=== PATIENT | male | born 1980 | race Caucasian/White ===

== ENCOUNTER 2016-12-23 00:37 | Inpatient (IN) | payer MEDICAID ==
[~2016-12-23] VITALS: Ht 175.3 cm; Wt 110.4 kg
[2016-12-23] VITALS (8 sets, daily range): BP systolic 113–149; BP diastolic 66–93
[~2016-12-23 00:37] MED LIST: AMOXICILLIN 50500 MG PO; COLCRYS0.6 M1 PO; HYDROCODONE1 TABLET PO; LORTAB 5/500 501 TAB PO; METHADONE HC10 MG/M1 PO; NAPROSYN 500MG500 MG PO; NEURONTIN800 MG PO; PERCOCET 5/3251 EACH PO
--- NOTE | 2016-12-23 01:59 | Emergency Room Report ---
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 C/O PAIN FROM LEFT KNEE TO LEFT FOOT. HAS HAD APPROX 1/4 PINT ALCOHOL TONIGHT AND TOOK 1/2 METHADONE THIS AM THAT DIDNT BELONG TO HIM. 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 N Clinical Suspician of Infection? N Mental Status: 1 - Regular (Normal Baseline) Sepsis Risk:Low Sepsis Risk Have you (or family members/close friends) recently traveled outside the [place]? N If Yes, where/when: Have you had exposure to infectious disease within the past month? N TB? Other? Specify: Source patient, RN notes reviewed, family, EMS, old records Exam Limitations no limitations Comment pt missttepped and injured lt lower leg - pt had used etoh and pain meds tonight prior to fall- no other injury Cardiac Chest Pain Chest pain indicative of cardiac No Timing/Duration this evening Severity moderate ALLERGIES Coded Allergies: NO KNOWN ALLERGIES (12/23/16) History Medical History General CAD? No Angina: No OR: No Hypertension? No Hyperlipidemia? No CHF? No DVT? No PE? No COPD? No Asthma? No Anemia? No GERD? No Gastric ulcers? No GI Bleed? No Hernia? No Thyroid Problems? No Hypothyroidism? No CVA? No Seizures? No Diabetes? No Renal Insuffiency? No End Stage Renal Disease? No UTI? No Stones? No BPH? No GB Disease: No Nephritic Syndrome? No Asplenia? No Hepatitis? No Sickle Cell Disease? No Arthritis? No Migraines? No Cataracts? No Glaucoma? No MRSA? Yes HIV? No TB? No Anxiety? No Depression? No Cancer? No Immunization Hx DT/Tetanus > 10 Years Ago Surgical Hx Previous Surgery?Y NASAL SURGERY Social History Smoking Hx Smoker: Current Every Day Smoker Tobacco: Yes Type Cigarettes Packs/day 1 1/2 - 2 Packs Alcohol Alcohol: No Drugs none Review of Systems All Other Systems Reviewed and Negative Constitutional denies fever Eyes denies drainage ENT denies: ear discharge, epistaxis, throat pain. Respiratory denies cough, denies shortness of breath, denies wheezing Cardiovascular denies chest pain, denies palpitations, denies syncope Gastrointestinal denies abdominal pain, denies diarrhea, denies vomiting Genitourinary denies: dysuria, frequency, hesitancy, hematuria. Musculoskeletal see HPI, denies back pain, joint pain, denies joint swelling, denies neck pain, other Skin denies rash Psychiatric/Neurological denies headache, denies seizure Physical Exam Vital Signs Vital Signs Date Time Temp Pulse Resp B/P Pulse O2 O2 Flow FiO2 Ox Delivery Rate 12/23 023 98.7 114 20 126/62 96 12/23 0150 94 20 111/69 96 12/23 0040 86 20 113/66 96 - WBC >12,000 or <4,000 or 10% bands? 2 or more SIRS Criteria Met? B/P:126/62 MAP:81 Creatinine >2.0? UA output<0.5ml/kg/hr for 2 hrs? Platelet count >100,000? Lactate >2.0mmol/1? INR >1.2 or PTT > than 60 sec? Evidence of Organ Dysfunction? Provider documented clinical suspician of infection? N Sepsis Criteria Count: 1 Sepsis Risk: Low Sepsis Risk General Appearance no apparent distress Eye Exam - bilateral eye PERRL, bilateral eye EOMI Ear, Nose, Throat normal ENT inspection Neck supple Respiratory Status No: respiratory distress. Lung Sounds bilateral: lungs clear. 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 No Results/Orders Laboratory Tests 12/23/16 0236: Opiates Screen NEGATIVE, Urine Methadone Screen POSITIVE H, Barbiturates NEGATIVE, Phencyclidine Screen NEGATIVE, Amphetamines Screen NEGATIVE, Benzodiazepines Screen POSITIVE H, Cocaine Screen NEGATIVE, Marijuana (THC) Screen NEGATIVE, Urine Color YELLOW, Urine Appearance CLEAR, Urine pH 6.0, Ur Specific [place] 1.010, Urine Protein NEGATIVE, Urine Ketones NEGATIVE, Urine Blood NEGATIVE, Urine Nitrate NEGATIVE, Urine Bilirubin NEGATIVE, Urine Urobilinogen 0.2, Ur Leukocyte Esterase NEGATIVE, Urine Glucose NEGATIVE 12/23/16 0200: Sodium 143, Potassium 3.3 L, Chloride 105, Carbon Dioxide 30, BUN 7, Creatinine 0.8, Estimated Creat Clear 194, Estimated GFR (MDRD) 110, Glucose Pending, Calcium 8.0 L, Total Bilirubin 0.3, AST Pending, ALT Pending, Alkaline Phosphatase 105, Total Protein 7.2, Albumin 3.7, Globulin 3.5 H, Albumin/ Globulin Ratio 1.1, WBC 10.8, RBC 5.34, Hgb 16.9, Hct 47.1, MCV 88.1, RDW 12.9, Plt Count 170, MPV 8.6, Gran % 74.6, Gran # 8.0, Lymphocytes % 20.3, Monocytes % 3.1, Eosinophils % 1.6, Basophils % 0.4, Lymphocytes # 2.2, Monocytes # 0.3, Eosinophils # 0.2, Basophils # 0.1, PUBS MCHC 36.0 H, MCH 31.7 H, Alcohols 113 H Orders Procedure Date/time Status Decision to admit 12/23 0252 Active URINALYSIS/COMPLETE 12/23 158 Complete DRUG ABUSE SCREEN (TRIAGE) 12/23 158 Complete CBC WITH AUTO DIFF 12/23 153 Complete CHEM 12 PROFILE 12/23 153 Active ALCOHOL 12/23 153 Complete IV SALINE LOCK 12/23 48 Active PELVIS AP ONLY 12/23 44 Active LOWER LEG-LT 12/23 44 Active ANKLE-LT-3 VIEWS 12/23 44 Active XRAY/CT/US XRAY/CT/US XRAY leg, pelvis XR interpretation by reviewed by me Xray Results abnormal (fx seen) Departure Departure Time of Disposition 0303 Disposition Still a Patient Clinical Impression Primary Impression: Fracture of lower leg Qualifiers: Encounter type: initial encounter Fracture type: closed Laterality: left Qualified Code: S82.92XA - Unspecified fracture of left lower leg, initial encounter for closed fracture Condition STABLE Referrals Andi CASILLAS,Ken Dickinson (Family) discussed with dr tomas ED Critical Care Critical Care No at [id number]
[2016-12-23 02:07] LABS: HEMOGLOBIN 16.9 g/dL (14.1-18.0); LYMPH # 2.2 K/mm3 (0.7-4.5); LYMPH % 20.3 % (10-50)
[2016-12-23 02:47] LABS: URINE BILIRUBIN - DIPSTICK NEGATIVE (NEG); URINE BLOOD NEGATIVE (NEG)
[2016-12-23 02:57] LABS: AMPHETAMINES/METAMPHETAMINES NEGATIVE ng/mL (<1000)
[2016-12-23 03:20] LABS: URINE SQUAMOUS CELLS OCC #/hpf (OCC)
[2016-12-23] MEDS ORDERED: WELLBUTRIN SR100 MG PO ×2 (04:48→08:46)
[2016-12-23] MEDS ORDERED: GABAPENTIN 600600 MG PO (04:49)
--- NOTE | 2016-12-23 05:44 | RADIOLOGY REPORT PS360 ---
LOWER LEG-LT HISTORY: Pain following injury FALL ORDERING PHYSICIAN: Ken Escamilla MD PATIENT AGE: 36 years COMPARISON: None FINDINGS: Comminuted spiral fracture involving the distal shaft of the tibia with very minimal lateral displacement of the distal fracture fragment x 6 mm. Nondisplaced oblique fracture involving the distal shaft of the fibula. There is good alignment IMPRESSION: Mildly displaced comminuted distal tibia fracture Nondisplaced oblique distal fibular fracture
--- NOTE | 2016-12-23 05:45 | RADIOLOGY REPORT PS360 ---
PELVIS AP ONLY HISTORY: Fall with injury and pain FALL ORDERING PHYSICIAN: Ken Escamilla MD PATIENT AGE: 36 years COMPARISON: None FINDINGS: No fracture or dislocation is evident. No significant degenerative change. No lytic or blastic change. The SI joints have an unremarkable appearance. Unremarkable soft tissues. IMPRESSION: Negative pelvis.
--- NOTE | 2016-12-23 07:18 | PHARMACY CLINIC NOTE ---
Patient Demographics Patient Demographics Admission date: 12/23/16 Date: 12/23/16 Time: 0718 Allergies Coded Allergies: No Known Allergies (12/23/16) HEIGHT- FT: 5 IN: 9.00 K.366 VTE General Information Labs: Laboratory Tests 12/23 0200 Hematology Hgb (14.1 - 18.0 g/dL) 16.9 Hct (42.0 - 52.0 %) 47.1 Plt Count (142 - 424 K/mm3) 170 Disclaimer The following section includes nursing documentation that has been pulled in for pharmacy review. Patient's VTE score: 3 Patient's VTE Risk: LOW RISK Clinical trial participant? No VTE prophylaxis NQF [id number] VTE prophylaxis ordered? Yes Type of prophylaxis/treatment: BIANCA at 0718
[2016-12-23] MEDS ORDERED: NEURONTIN800 MG PO (08:37)
[2016-12-23] MEDS ORDERED: OXAZEPAM 10MG C10 M1 PO (08:38)
[2016-12-23] MEDS ORDERED: ESCITALOPRAM 2020 MG PO (08:38)
[2016-12-23] MEDS ORDERED: HYDROXYZINE HCL25 M1 PO (08:38)
--- NOTE | 2016-12-23 09:11 | HISTORY AND PHYSICAL REPORT ---
Demographics: Admit date: 12/23/16 Chief complaint: fall PRIMARY DIAGNOSIS: LEG FX Allergies: Coded Allergies: No Known Allergies (12/23/16) History of present illness: History of present illness: this is a healthy wm who slipped on step last pm with acute lt leg injury and had been drinking etoh- he was brought by ems and was seen in the ed with fx of lt lower leg and was admitted for orif with dr tomas- Past medical history: Family HX Family Hx Insignificant Yes Immunization HX DT/Tetanus 5-10 Years Ago Pneumonia Refuses TB Test in last year Yes Result Negative General CAD? No Angina: No DE: No Hypertension? No Hyperlipidemia? No CHF? No DVT? No PE? No COPD? No Asthma? No Anemia? No GERD? No Gastric ulcers? No GI Bleed? No Hernia? No Thyroid Problems? No Hypothyroidism? No CVA? No Seizures? No Diabetes? No Renal Insuffiency? No UTI? No Stones? No BPH? No GB Disease: No Nephritic Syndrome? No Asplenia? No Hepatitis? No Sickle Cell Disease? No Arthritis? No Migraines? No Cataracts? No Glaucoma? No MRSA? Yes HIV? No TB? No Anxiety? No Depression? No Cancer? No Past Surgical HX Previous Surgery?Y NASAL SURGERY Current home meds: Reported Medications Gabapentin (Neurontin) 800 MG PO TID Oxazepam 10 MG PO BIDP PRN ANXIETY Escitalopram Oxalate (Escitalopram 20MG) 20 MG PO DAILY BUPROPION HCL SR (Wellbutrin SR 100MG) 100 MG PO BID Social Hx: Smoking HX Tobacco Yes Type Cigarettes Packs/day 1 1/2 - 2 PACKS Alcohol Alcohol: Yes How much do you drink Less Than One Drink A Day, ONCE PER WEEK For how long 2-5 Years When was your last drink 12-24 Hours Ago Hx of Drug Use Drug Use? No Patien't marital status is Patient's support system is good Review of systems: Constitutional No: fever. Eyes No: drainage. Ears, Nose, Mouth, Throat No ear discharge, No epistaxis, No throat pain Respiratory No: cough, shortness of breath, wheezing. Cardiovascular No chest pain, No palpitations, No syncope Gastrointestinal/Abdominal No abdominal pain Genitourinary No: dysuria, frequency, hesitancy, hematuria. Musculoskeletal see HPI, joint pain, joint swelling. No: back pain, neck pain. Skin No: rash. Neurological No: headache, parasthesia, seizure disorder. Psychiatric No: no symptoms reported. Exam: Lab data for last 24 hours: Laboratory Tests 12/23/16 0236: Opiates Screen NEGATIVE, Urine Methadone Screen POSITIVE H, Barbiturates NEGATIVE, Phencyclidine Screen NEGATIVE, Amphetamines Screen NEGATIVE, Benzodiazepines Screen POSITIVE H, Cocaine Screen NEGATIVE, Marijuana (THC) Screen NEGATIVE, Urine Color YELLOW, Urine Appearance CLEAR, Urine pH 6.0, Ur Specific [place] 1.010, Urine Protein NEGATIVE, Urine Ketones NEGATIVE, Urine Blood NEGATIVE, Urine Nitrate NEGATIVE, Urine Bilirubin NEGATIVE, Urine Urobilinogen 0.2, Ur Leukocyte Esterase NEGATIVE, Urine WBC 3-5, Ur Squamous Epith Cells OCC, Urine Bacteria OCC, Urine Glucose NEGATIVE 12/23/16 0200: Sodium 143, Potassium 3.3 L, Chloride 105, Carbon Dioxide 30, BUN 7, Creatinine 0.8, Estimated Creat Clear 194, Estimated GFR (MDRD) 110, Glucose 65 L, Calcium 8.0 L, Total Bilirubin 0.3, AST 30, ALT 43, Alkaline Phosphatase 105, Total Protein 7.2, Albumin 3.7, Globulin 3.5 H, Albumin/Globulin Ratio 1.1, WBC 10.8, RBC 5.34, Hgb 16.9, Hct 47.1, MCV 88.1, RDW 12.9, Plt Count 170, MPV 8.6, Gran % 74.6, Gran # 8.0, Lymphocytes % 20.3, Monocytes % 3.1, Eosinophils % 1.6, Basophils % 0.4, Lymphocytes # 2.2, Monocytes # 0.3, Eosinophils # 0.2, Basophils # 0.1, PUBS MCHC 36.0 H, MCH 31.7 H, Alcohols 113 H Admission vital signs: 1ST Vital Signs Result Date Time Pulse Ox 96 12/23 0040 B/P 113/66 12/23 0040 Pulse 86 12/23 0040 Resp 20 12/23 0040 Temp 98.7 12/23 0234 O2 Delivery ROOM AIR 12/23 0455 Exam General appearance: alert Eyes: anicteric, PERRLA ENT: mucous membranes moist Neck: no JVD Cardiovascular: regular rate & rhythm, no murmur Respiratory: clear to auscultation ABD: soft Genitourinary: no hematuria Extremities: splint lt lower leg Musculoskeletal: normal exam Skin: dry 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 Fracture of lower leg 2. Tobacco use 3. Alcohol use Plan: will await dr tomas consult at 0910
--- NOTE | 2016-12-23 09:30 | RADIOLOGY REPORT PS360 ---
CHEST-PORTABLE HISTORY: cough ORDERING PHYSICIAN: Ken Escamilla MD PATIENT AGE: 36 years COMPARISON: None available FINDINGS: The cardiomediastinal silhouette and pulmonary vascularity are within normal limits. The lungs are clear without infiltrates, suspicious nodules, or pleural effusions. No acute bony abnormalities. IMPRESSION: Negative chest, no acute finding
[2016-12-24] VITALS (13 sets, daily range): BP systolic 115–152; BP diastolic 63–92
[2016-12-24 06:52] LABS: HEMOGLOBIN 16.2 g/dL (14.1-18.0); LYMPH % 27.6 % (10-50)
--- NOTE | 2016-12-24 12:58 | ACUTE CARE PROGRESS NOTE (QUA) ---
Progress Notes Subjective Date 12/24/16 Time 1252 Note pain a bit worse Patient/family reports: pain Nursing reports: pain Objective Findings Last VS-Temp:98.3 B/P:147/88 Pulse:85 Resp:16 SaO2:93 ROOM AIR Last weight lbs:243 oz:5 K.366 Method:Bed Scales Exam General appearance: alert, awake Eyes: anicteric, PERRLA ENT: mucous membranes moist Neck: no JVD Cardiovascular: regular rate & rhythm, no murmur Respiratory: clear to auscultation, no respiratory distress ABD: soft Genitourinary: no hematuria Extremities: splint lt lower leg - cap refill ok Musculoskeletal: equal muscle strength Skin: dry Neuro: 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 Fracture of lower leg 2. Tobacco use 3. Alcohol use Patient condition Stable Plan: surg today This inpt stay is expected to cross 2 MNs from start of care Yes Comments: will have surg today at 1257
--- NOTE | 2016-12-24 12:58 | ACUTE CARE PROGRESS NOTE (QUA) ---
Progress Notes Subjective Date 12/24/16 Time 1252 Note pain a bit worse Patient/family reports: pain Nursing reports: pain Objective Findings Last VS-Temp:98.3 B/P:147/88 Pulse:85 Resp:16 SaO2:93 ROOM AIR Last weight lbs:243 oz:5 K.366 Method:Bed Scales Exam General appearance: alert, awake Eyes: anicteric, PERRLA ENT: mucous membranes moist Neck: no JVD Cardiovascular: regular rate & rhythm, no murmur Respiratory: clear to auscultation, no respiratory distress ABD: soft Genitourinary: no hematuria Extremities: splint lt lower leg - cap refill ok Musculoskeletal: equal muscle strength Skin: dry 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 Fracture of lower leg 2. Tobacco use 3. Alcohol use Patient condition Stable Plan: surg today This inpt stay is expected to cross 2 MNs from start of care Yes Comments: will have surg today at 1257
--- NOTE | 2016-12-24 16:43 | Anesthesia Record ---
Anesthesia Record Part II Discharge time: 1710 Destination: Second Floor PACU nurse assessment review? Yes Patient is: Awake, Stable Anesthesia complications? No at 0317
--- NOTE | 2016-12-24 16:43 | Anesthesia Record ---
Anesthesia Record Part I Total IV fluids: 2500 EBL (ml): 150 Urine Output: 0 B/P: 155/74 % SaO2: 95 Pulse: 112 Resps: 14 Temp: 97.2 Patient is: Awake, Stable Stable to PACU at: 1640 at 1643
--- NOTE | 2016-12-24 16:56 | Operative Note ---
Procedure/Operative Record Date of Procedure: 12/24/16 Referring physician: Dr. Escamilla Pre-op diagnosis: LEFT comminuted spiral tibia fracture, closed LEFT spiral fibula fracture, closed Post-op diagnosis: Same Procedure performed: Open reduction internal fixation LEFT fibular fracture Closed intramedullary nailing LEFT tibia fracture Surgeon: Kulwant Storm Pig Machine Crane Operator(s): Rhoda HOFFMAN indicated due to the complexity of this case Anesthesia: Gen. anesthetic Indications: The patient is a 36-year-old male who fell down a set of stairs incurring a closed, comminuted spiral fracture of his LEFT tibial diaphysis as well as a closed spiral fracture of his Findings: Preoperative radiographs agree with intraoperative findings. Bone quality was excellent. Description of procedure: The patient was taken to the operating room and placed in the supine position. General anesthetic was administered. The leg was carefully prepped and draped in the usual sterile fashion with Hibiclens liquid followed by chlorhexidine preparations sponges. After an appropriate timeout, a closed reduction maneuver was attempted. Unfortunately, the comminution of the tibia at the fracture of the fibula prevented appropriate reduction. At this point, we elected to open and perform open reduction internal fixation on the fibula. The limb was exsanguinated and the tourniquet inflated to 325 torr. A midline incision was made over the fibula and we carefully dissected soft tissues using strict AO technique. The fibula was exposed the fracture site irrigated, and the fibula grasped with tenaculums and reduced to an anatomic position. A [place] plate was applied using cortical screws. This held the fibula and essentially an anatomic position and also brought the tibia out to a much more appropriate length. At this point, we could reduce the tibia near anatomically. We irrigated the lateral incision and packed it with wet sponges. We next made a suprapatella incision through the skin subcutaneous tissues, and into the quadriceps tendon. We carefully mobilized a small portion of the VMO to access the quadriceps tendon and spared cutting of these fibers. The tendon was split and we attempted to insert the [place] suprapatella guide and protection sleeve. The patellofemoral joint was quite tight in this patient and we were unable to achieve this despite repeated attempts including with the leg fully extended. At this point, we conferred with the medicare sales representative and switch to the smaller guide which, would allow an 11 mm nail but no larger nail. We determined this would likely be adequate in this patient and proceeded to place the sleeve. We were able to get the sleeve in the patellofemoral joint however, the geometry allowed what appeared to be too posterior of a direction and a bit distal for starting point. Again we work with various degrees of flexion of the knee but unfortunately, were unable to successfully achieve a correct entry point using this technique. We then elected to go for an infrapatellar approach. We incised the skin, split the patellar tendon in the midline, and place the aiming cannulated awl in appropriate position, checking it with C-arm fluoroscopy. We then used the entry drill to place the guide pin. We then used the entry reamer followed by placement of a ball-tipped guidewire bent slightly at the tip to allow guidance. We carefully reduced the fracture manually and AP and lateral planes and carefully passed the ball-tipped guide past the fracture site so that it was placed in the center of the ankle. With the fracture stabilized by a nonoperative nutrition services assistant, we sequentially reamed to 12.5. Appropriate chatter was heard at the latter stages of reaming and we elected to place an 11 mm nail. We measured the length at 350 and chose a 345 mm length nail. The tourniquet was deflated proximally at this point. The nail was placed in the usual fashion taking care to guide it appropriately and the machine operator assistant was meticulous and preventing varus and valgus or flexion and extension of the fracture site. The nail was passed successfully and position and fracture alignment checked carefully. We then applied the proximal jig placed the guide sleeves, and placed a cross lock screw after drilling. We placed a 75 mm cross lock which was what was measured however, this appeared a bit too long and we switched it for a 70 mm screw. This was done because the patient's young age. We then placed a second cross lock screw measuring at and again placed the appropriate length measured screw but found it also to be a bit longer than appropriate and also switched it for one 5 mm shorter. Proximal cross lock screws 2 achieved good fixation. The suprapatella incision was closed at the same time the cross locks were being placed to prevent excess surgical time. The distal cross locks were placed using freehand perfect [place] ira technique. Once these two cross locks were placed, we irrigated and closed additional incisions as necessary. Both the quadriceps tendon and the patella tendon were closed with #1 Vicryl followed by subcutaneous closure with 2-0 Vicryl and rhett for the skin. The fibular lateral incision was irrigated and closed with 2-0 Vicryl followed by rhett. Rhett were also utilized with two cross lock incisions distally. We used C-arm to appropriately identify all hardware placed and ensure appropriate placement and alignment of the fracture. We then applied dressings to the incisions and the patient was transported to the recovery room in satisfactory condition. EBL (ml): 150 Implant: [place] tibial nail, titanium. Two cross lock screws proximally and two cross lock screws distally. No tibial nail cap screw was utilized. A [place] straight titanium plate and non-locking screws were used for the fibula fracture Complications: None Specimens: None at 6807
--- NOTE | 2016-12-24 19:14 | RADIOLOGY REPORT PS360 ---
LOWER LEG-LT HISTORY: LT TIBIA NAILING, FIBULA PLATES/SCREWS ORDERING PHYSICIAN: Ken Escamilla MD PATIENT AGE: 36 years Fluoroscopy time: 3 minutes and 27 seconds COMPARISON: None FINDINGS: 6 images submitted showing interval placement of an intramedullary nic within the tibia and bone plate of the distal fibula stabilizing the comminuted tibia and oblique fibular fracture. IMPRESSION: Status post ORIF tib-fib fracture
--- NOTE | 2016-12-24 19:15 | RADIOLOGY REPORT PS360 ---
LOWER LEG-LT HISTORY: Follow-up fracture 2 VIEWS LEFT LOWER LEG IN PACU ORDERING PHYSICIAN: Ken Escamilla MD PATIENT AGE: 36 years COMPARISON: 12/23/2016 FINDINGS: Status post ORIF with placement of intramedullary nic within the tibia with good alignment of the comminuted fracture fragments. Bone plate is been placed over the distal fibula also with good alignment of the fracture fragments. No significant displacement. Postsurgical clips are present. IMPRESSION: Good alignment status post ORIF left tib-fib fracture
[2016-12-24 19:23] LABS: URINE BILIRUBIN - DIPSTICK NEGATIVE (NEG); URINE BLOOD NEGATIVE (NEG)
[2016-12-25] VITALS (12 sets, daily range): BP systolic 111–146; BP diastolic 49–88
--- NOTE | 2016-12-25 09:02 | ACUTE CARE PROGRESS NOTE (QUA) ---
Progress Notes Subjective Date 12/25/16 Time 0900 Patient/family reports: feeling better, no complaints Nursing reports: alert Objective Findings Laboratory Tests 12/24/16 1730: Urine Color YELLOW, Urine Appearance CLEAR, Urine pH 7.0, Ur Specific [place] 1.015, Urine Protein NEGATIVE, Urine Ketones 1+ H, Urine Blood NEGATIVE, Urine Nitrate NEGATIVE, Urine Bilirubin NEGATIVE, Urine Urobilinogen 1.0, Ur Leukocyte Esterase NEGATIVE, Urine RBC OCC, Urine WBC 3-5, Ur Squamous Epith Cells NONE, Urine Bacteria TRACE, Urine Glucose NEGATIVE Vital Signs Date Time Temp Pulse Resp B/P Pulse O2 O2 Flow FiO2 Ox Delivery Rate 12/25 08 98.3 106 18 114/49 90 ROOM AIR 12/25 0830 98.4 104 18 117/71 92 12/25 0737 18 12/25 0548 18 12/25 0503 98.4 104 18 117/71 92 ROOM AIR 12/25 0205 98.3 121 18 111/71 92 ROOM AIR 12/25 0020 98.5 116 18 146/88 95 12/24 2320 98.7 122 18 140/78 92 12/24 2220 99.2 106 20 152/75 96 12/24 2120 98.6 113 18 115/63 91 12/24 2050 98.6 110 18 130/71 90 12/24 2020 98.7 111 18 151/73 91 12/24 1950 98.4 112 18 143/83 90 12/24 1920 98.4 108 18 141/86 90 12/24 1920 97.8 100 20 136/92 95 12/24 1851 18 12/24 1850 99.2 110 18 146/91 92 12/24 1835 98.7 124 18 129/77 92 12/24 1820 98.2 102 18 146/80 94 12/24 1819 85 18 147/88 93 12/24 1809 97.3 12/24 1805 98.3 110 18 145/71 93 12/24 1750 97.8 100 20 136/92 95 ROOM AIR 12/24 1740 100 20 150/85 97 ROOM AIR 12/24 1730 20 12/24 1730 104 18 164/71 97 OXYGEN 12/24 1720 106 18 120/60 98 OXYGEN 12/24 1715 16 12/24 1710 16 12/24 1710 105 16 132/96 99 OXYGEN 12/24 1705 16 12/24 1700 14 12/24 1700 104 16 141/91 96 OXYGEN 12/24 1650 107 14 155/98 94 OXYGEN 12/24 1642 97.2 112 14 155/74 95 12/24 1640 97.2 112 14 155/74 95 OXYGEN 12/24 1126 16 Current Medications Enoxaparin Sodium 30 MG Q12 SC (DC) Citalopram Hydrobromide 40 MG DAILY PO Morphine Sulfate 0 .STK-MED ONE IV (DC) Lactated Ringer's 1,000 ML .[id number] IV Sodium Chloride 100 ML .STK-MED ONE IV (DC) Cefazolin Sodium 0 .STK-MED ONE .ROUTE (DC) Bupropion HCl 100 MG BID PO Cefazolin Sodium 2 GM Q8 IV (DC) Sodium Chloride 50 ML Cefazolin Sodium 2 GM Q8 IV Sodium Chloride 50 ML Gabapentin 800 MG TID PO Sodium Chloride 50 ML .STK-MED ONE IV (DC) Cefazolin Sodium 0 .STK-MED ONE .ROUTE (DC) Hydrocodone Bitart/Acetaminophen 1 TAB Q4HP PRN PO Hydrocodone Bitart/Acetaminophen 2 TAB Q4HP PRN PO Ketorolac Tromethamine 30 MG Q6HP PRN IV Meperidine HCl 12.5 MG [id number] PRN IV (DC) Meperidine HCl 25 MG [id number] PRN IV (DC) Morphine Sulfate 2 MG [id number] PRN IV (DC) Morphine Sulfate 0.5 MG [id number] PRN IV (DC) Nicotine 21 MG DAILYP PRN TD Ondansetron HCl 4 MG Q6HP PRN IV Ondansetron HCl 4 MG Q4HP PRN IV (DC) Promethazine HCl 6.25 MG Q4HP PRN IV Senna/Docusate Sodium 1 TAB BIDP PRN PO Sodium Chloride 10 ML PRN PRN IV Sodium Chloride 10 ML PRN PRN IV Sodium Chloride 25 ML PRN PRN IV Hydromorphone HCl 2 MG ONCE ONE IV (DC) Hydromorphone HCl 0 .STK-MED ONE .ROUTE (DC) Hydrocodone Bitart/Acetaminophen 1 TAB Q4HP PRN PO (DC) Hydrocodone Bitart/Acetaminophen 2 TAB Q4HP PRN PO (DC) Ketorolac Tromethamine 30 MG Q6HP PRN IV (DC) Lactated Ringer's 1,000 ML .[id number] IV (DC) Morphine Sulfate 0.5 MG [id number] PRN IV (DC) Naloxone HCl 0.4 MG Q3MINP PRN IV Promethazine HCl 6.25 MG Q4HP PRN IV (DC) Senna/Docusate Sodium 1 TAB BIDP PRN PO (DC) Sodium Chloride 10 ML PRN PRN IV (DC) Sodium Chloride 25 ML PRN PRN IV (DC) Morphine Sulfate 0 .STK-MED ONE .ROUTE (DC) Morphine Sulfate 0 .STK-MED ONE .ROUTE (DC) Lactated Ringer's 1,000 ML .Q25H IV (DC) Meperidine HCl 12.5 MG [id number] PRN IV (DC) Meperidine HCl 25 MG [id number] PRN IV (DC) Morphine Sulfate 2 MG [id number] PRN IV (DC) Ondansetron HCl 4 MG Q4HP PRN IV (DC) Meperidine HCl 0 .STK-MED ONE .ROUTE (DC) Sevoflurane 0 .STK-MED ONE IN (DC) Dexamethasone 0 .STK-MED ONE .ROUTE (DC) Fentanyl Citrate 0 .STK-MED ONE IV (DC) Ondansetron HCl 0 .STK-MED ONE .ROUTE (DC) Propofol 0 .STK-MED ONE IV (DC) Lidocaine HCl 0 .STK-MED ONE .ROUTE (DC) Cefazolin Sodium 0 .STK-MED ONE .ROUTE (DC) Cefazolin Sodium 2 GM ONCE ONE IV (DC) Sodium Chloride 100 ML Bupivacaine HCl 0 .STK-MED ONE .ROUTE (DC) Fentanyl Citrate 0 .STK-MED ONE IV (DC) Midazolam HCl 0 .STK-MED ONE .ROUTE (DC) Hydromorphone HCl 1 MG Q4HP PRN IV (DC) Hydromorphone HCl 0 .STK-MED ONE .ROUTE (DC) Hydromorphone HCl 0 .STK-MED ONE .ROUTE (DC) Hydromorphone HCl 1 MG Q4HP PRN IV (DC) Citalopram Hydrobromide 40 MG DAILY PO (DC) Gabapentin 800 MG TID PO (DC) Bupropion HCl 100 MG BID PO (DC) Sodium Chloride 10 ML PRN PRN IV (DC) Nicotine 21 MG DAILYP PRN TD (DC) Ondansetron HCl 4 MG Q6HP PRN IV (DC) Sodium Chloride 1,000 ML .[id number] IV (DC) Last VS-Temp:98.3 B/P:114/49 Pulse:106 Resp:18 SaO2:90 ROOM AIR Last weight lbs:243 oz:5 K.366 Method:Bed Scales Exam General appearance: normal appearance, active, no acute distress Eyes: normal exam ENT: normal exam Neck: normal inspection Cardiovascular: normal exam, regular rate & rhythm Respiratory: normal exam ABD: normal exam Genitourinary: normal voiding & quantity Extremities: DRESSING TO LOWER LEG Musculoskeletal: normal exam Skin: normal exam Neuro: normal exam, alert, intact, oriented Reviewed: allergies, medications, vital signs, lab results, consult note Assessment/Plan Problem List 1. Fracture of lower leg Qualifiers: Encounter type: initial encounter Fracture type: closed Laterality: left Qualified Code: S82.92XA - Unspecified fracture of left lower leg, initial encounter for closed fracture 2. Tobacco use 3. Alcohol use Patient condition Stable Plan: continue current care This inpt stay is expected to cross 2 MNs from start of care Yes Comments: Rounded with Dr. Escamilla, discussed with Dr. Morton patient's need for pain control. at 0902
--- NOTE | 2016-12-25 09:02 | ACUTE CARE PROGRESS NOTE (QUA) ---
Progress Notes Subjective Date 12/25/16 Time 0900 Patient/family reports: feeling better, no complaints Nursing reports: alert Objective Findings Laboratory Tests 12/24/16 1730: Urine Color YELLOW, Urine Appearance CLEAR, Urine pH 7.0, Ur Specific [place] 1.015, Urine Protein NEGATIVE, Urine Ketones 1+ H, Urine Blood NEGATIVE, Urine Nitrate NEGATIVE, Urine Bilirubin NEGATIVE, Urine Urobilinogen 1.0, Ur Leukocyte Esterase NEGATIVE, Urine RBC OCC, Urine WBC 3-5, Ur Squamous Epith Cells NONE, Urine Bacteria TRACE, Urine Glucose NEGATIVE Vital Signs Date Time Temp Pulse Resp B/P Pulse O2 O2 Flow FiO2 Ox Delivery Rate 12/25 08 98.3 106 18 114/49 90 ROOM AIR 12/25 0830 98.4 104 18 117/71 92 12/25 0737 18 12/25 0548 18 12/25 0503 98.4 104 18 117/71 92 ROOM AIR 12/25 0205 98.3 121 18 111/71 92 ROOM AIR 12/25 0020 98.5 116 18 146/88 95 12/24 2320 98.7 122 18 140/78 92 12/24 2220 99.2 106 20 152/75 96 12/24 2120 98.6 113 18 115/63 91 12/24 2050 98.6 110 18 130/71 90 12/24 2020 98.7 111 18 151/73 91 12/24 1950 98.4 112 18 143/83 90 12/24 1920 98.4 108 18 141/86 90 12/24 1920 97.8 100 20 136/92 95 12/24 1851 18 12/24 1850 99.2 110 18 146/91 92 12/24 1835 98.7 124 18 129/77 92 12/24 1820 98.2 102 18 146/80 94 12/24 1819 85 18 147/88 93 12/24 1809 97.3 12/24 1805 98.3 110 18 145/71 93 12/24 1750 97.8 100 20 136/92 95 ROOM AIR 12/24 1740 100 20 150/85 97 ROOM AIR 12/24 1730 20 12/24 1730 104 18 164/71 97 OXYGEN 12/24 1720 106 18 120/60 98 OXYGEN 12/24 1715 16 12/24 1710 16 12/24 1710 105 16 132/96 99 OXYGEN 12/24 1705 16 12/24 1700 14 12/24 1700 104 16 141/91 96 OXYGEN 12/24 1650 107 14 155/98 94 OXYGEN 12/24 1642 97.2 112 14 155/74 95 12/24 1640 97.2 112 14 155/74 95 OXYGEN 12/24 1126 16 Current Medications Enoxaparin Sodium 30 MG Q12 SC (DC) Citalopram Hydrobromide 40 MG DAILY PO Morphine Sulfate 0 .STK-MED ONE IV (DC) Lactated Ringer's 1,000 ML .[id number] IV Sodium Chloride 100 ML .STK-MED ONE IV (DC) Cefazolin Sodium 0 .STK-MED ONE .ROUTE (DC) Bupropion HCl 100 MG BID PO Cefazolin Sodium 2 GM Q8 IV (DC) Sodium Chloride 50 ML Cefazolin Sodium 2 GM Q8 IV Sodium Chloride 50 ML Gabapentin 800 MG TID PO Sodium Chloride 50 ML .STK-MED ONE IV (DC) Cefazolin Sodium 0 .STK-MED ONE .ROUTE (DC) Hydrocodone Bitart/Acetaminophen 1 TAB Q4HP PRN PO Hydrocodone Bitart/Acetaminophen 2 TAB Q4HP PRN PO Ketorolac Tromethamine 30 MG Q6HP PRN IV Meperidine HCl 12.5 MG [id number] PRN IV (DC) Meperidine HCl 25 MG [id number] PRN IV (DC) Morphine Sulfate 2 MG [id number] PRN IV (DC) Morphine Sulfate 0.5 MG [id number] PRN IV (DC) Nicotine 21 MG DAILYP PRN TD Ondansetron HCl 4 MG Q6HP PRN IV Ondansetron HCl 4 MG Q4HP PRN IV (DC) Promethazine HCl 6.25 MG Q4HP PRN IV Senna/Docusate Sodium 1 TAB BIDP PRN PO Sodium Chloride 10 ML PRN PRN IV Sodium Chloride 10 ML PRN PRN IV Sodium Chloride 25 ML PRN PRN IV Hydromorphone HCl 2 MG ONCE ONE IV (DC) Hydromorphone HCl 0 .STK-MED ONE .ROUTE (DC) Hydrocodone Bitart/Acetaminophen 1 TAB Q4HP PRN PO (DC) Hydrocodone Bitart/Acetaminophen 2 TAB Q4HP PRN PO (DC) Ketorolac Tromethamine 30 MG Q6HP PRN IV (DC) Lactated Ringer's 1,000 ML .[id number] IV (DC) Morphine Sulfate 0.5 MG [id number] PRN IV (DC) Naloxone HCl 0.4 MG Q3MINP PRN IV Promethazine HCl 6.25 MG Q4HP PRN IV (DC) Senna/Docusate Sodium 1 TAB BIDP PRN PO (DC) Sodium Chloride 10 ML PRN PRN IV (DC) Sodium Chloride 25 ML PRN PRN IV (DC) Morphine Sulfate 0 .STK-MED ONE .ROUTE (DC) Morphine Sulfate 0 .STK-MED ONE .ROUTE (DC) Lactated Ringer's 1,000 ML .Q25H IV (DC) Meperidine HCl 12.5 MG [id number] PRN IV (DC) Meperidine HCl 25 MG [id number] PRN IV (DC) Morphine Sulfate 2 MG [id number] PRN IV (DC) Ondansetron HCl 4 MG Q4HP PRN IV (DC) Meperidine HCl 0 .STK-MED ONE .ROUTE (DC) Sevoflurane 0 .STK-MED ONE IN (DC) Dexamethasone 0 .STK-MED ONE .ROUTE (DC) Fentanyl Citrate 0 .STK-MED ONE IV (DC) Ondansetron HCl 0 .STK-MED ONE .ROUTE (DC) Propofol 0 .STK-MED ONE IV (DC) Lidocaine HCl 0 .STK-MED ONE .ROUTE (DC) Cefazolin Sodium 0 .STK-MED ONE .ROUTE (DC) Cefazolin Sodium 2 GM ONCE ONE IV (DC) Sodium Chloride 100 ML Bupivacaine HCl 0 .STK-MED ONE .ROUTE (DC) Fentanyl Citrate 0 .STK-MED ONE IV (DC) Midazolam HCl 0 .STK-MED ONE .ROUTE (DC) Hydromorphone HCl 1 MG Q4HP PRN IV (DC) Hydromorphone HCl 0 .STK-MED ONE .ROUTE (DC) Hydromorphone HCl 0 .STK-MED ONE .ROUTE (DC) Hydromorphone HCl 1 MG Q4HP PRN IV (DC) Citalopram Hydrobromide 40 MG DAILY PO (DC) Gabapentin 800 MG TID PO (DC) Bupropion HCl 100 MG BID PO (DC) Sodium Chloride 10 ML PRN PRN IV (DC) Nicotine 21 MG DAILYP PRN TD (DC) Ondansetron HCl 4 MG Q6HP PRN IV (DC) Sodium Chloride 1,000 ML .[id number] IV (DC) Last VS-Temp:98.3 B/P:114/49 Pulse:106 Resp:18 SaO2:90 ROOM AIR Last weight lbs:243 oz:5 [id number].366 Method:Bed Scales Exam General appearance: normal appearance, active, no acute distress Eyes: normal exam ENT: normal exam Neck: normal inspection Cardiovascular: normal exam, regular rate & rhythm Respiratory: normal exam ABD: normal exam Genitourinary: normal voiding & quantity Extremities: DRESSING TO LOWER LEG Musculoskeletal: normal exam Skin: normal exam Neuro: normal exam, alert, intact, oriented Reviewed: allergies, medications, vital signs, lab results, consult note Assessment/Plan Problem List 1. Fracture of lower leg Qualifiers: Encounter type: initial encounter Fracture type: closed Laterality: left Qualified Code: S82.92XA - Unspecified fracture of left lower leg, initial encounter for closed fracture 2. Tobacco use 3. Alcohol use Patient condition Stable Plan: continue current care This inpt stay is expected to cross 2 MNs from start of care Yes Comments: Rounded with Dr. Escamilla, discussed with Dr. Morton patient's need for pain control. at 0902
--- NOTE | 2016-12-25 13:22 | ACUTE CARE PROGRESS NOTE ---
Progress note Date: 12/25/16 Assessment: Awake alert and moderate pain. 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 Discussed with pharmacy. The vial be changed. Patient is sensate to light touch in the lower extremities. Pedal pulses intact. No evidence compartment syndrome as compartments are soft. Postop x-rays appear excellent. Dressings clean and dry Impression: 1. Fracture of lower leg Qualifiers Encounter type: initial encounter Fracture type: closed Laterality: left Qualified Code: S82.92XA - Unspecified fracture of left lower leg, initial encounter for closed fracture 2. Tobacco use 3. Alcohol use Plan: Touchdown weightbearing with physical therapy. Remove Dumont today. at 1326
--- NOTE | 2016-12-25 13:22 | ACUTE CARE PROGRESS NOTE ---
Progress note Date: 12/25/16 Assessment: Awake alert and moderate pain. 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 Discussed with pharmacy. The vial be changed. Patient is sensate to light touch in the lower extremities. Pedal pulses intact. No evidence compartment syndrome as compartments are soft. Postop x-rays appear excellent. Dressings clean and dry Impression: 1. Fracture of lower leg Qualifiers Encounter type: initial encounter Fracture type: closed Laterality: left Qualified Code: S82.92XA - Unspecified fracture of left lower leg, initial encounter for closed fracture 2. Tobacco use 3. Alcohol use Plan: Touchdown weightbearing with physical therapy. Remove Dumont today. at 1327
[2016-12-26] VITALS (11 sets, daily range): BP systolic 101–129; BP diastolic 64–78
--- NOTE | 2016-12-26 08:42 | ACUTE CARE PROGRESS NOTE (QUA) ---
Progress Notes Subjective Date 12/26/16 Time 0840 Patient/family reports: pain Nursing reports: alert Objective Findings Vital Signs Date Time Temp Pulse Resp B/P Pulse O2 O2 Flow FiO2 Ox Delivery Rate 12/26 0745 98.0 85 18 129/74 99 12/26 0609 98.0 85 18 129/74 99 12/26 0604 98.0 85 18 129/74 99 ROOM AIR 12/26 0455 98.2 82 18 127/78 93 ROOM AIR 12/26 0440 16 12/26 0205 98.0 80 18 129/71 93 12/26 0157 98.0 80 18 129/71 93 ROOM AIR 12/26 0001 16 12/25 2340 98.5 82 18 128/74 93 ROOM AIR 12/25 2213 18 12/25 2200 98.6 87 18 113/61 95 12/25 2146 98.6 87 18 113/61 95 ROOM AIR 12/25 2000 98.6 94 18 116/82 95 12/25 1950 98.6 94 18 116/82 95 12/25 1912 98.6 94 18 116/82 95 ROOM AIR 12/25 1856 18 12/25 1630 98.1 72 18 118/70 94 ROOM AIR 12/25 1200 98.2 75 18 125/78 93 ROOM AIR 12/25 1000 98.1 95 18 127/79 98 ROOM AIR Current Medications Ketorolac Tromethamine 0 .STK-MED ONE .ROUTE (DC) Hydrocodone Bitart/Acetaminophen 0 .STK-MED ONE PO (DC) Morphine Sulfate 0 .STK-MED ONE IV (DC) Enoxaparin Sodium 30 MG Q12 SC (DC) Senna/Docusate Sodium 0 .STK-MED ONE .ROUTE (DC) Hydrocodone Bitart/Acetaminophen 0 .STK-MED ONE PO (DC) Nicotine 0 .STK-MED ONE TD (DC) Lactated Ringer's 1,000 ML .STK-MED ONE IV (DC) Morphine Sulfate 0 .STK-MED ONE IV (DC) Citalopram Hydrobromide 40 MG DAILY PO Lactated Ringer's 1,000 ML .[id number] IV Bupropion HCl 100 MG BID PO Cefazolin Sodium 2 GM Q8 IV (DC) Sodium Chloride 50 ML Gabapentin 800 MG TID PO Hydrocodone Bitart/Acetaminophen 1 TAB Q4HP PRN PO Hydrocodone Bitart/Acetaminophen 2 TAB Q4HP PRN PO Ketorolac Tromethamine 30 MG Q6HP PRN IV Morphine Sulfate 0.5 MG [id number] PRN IV Nicotine 21 MG DAILYP PRN TD Ondansetron HCl 4 MG Q6HP PRN IV Promethazine HCl 6.25 MG Q4HP PRN IV Senna/Docusate Sodium 1 TAB BIDP PRN PO Sodium Chloride 10 ML PRN PRN IV Sodium Chloride 10 ML PRN PRN IV Sodium Chloride 25 ML PRN PRN IV Naloxone HCl 0.4 MG Q3MINP PRN IV (DC) Last VS-Temp:98.0 B/P:129/74 Pulse:85 Resp:18 SaO2:99 ROOM AIR Last weight lbs:243 oz:5 K.366 Method:Bed Scales Exam General appearance: normal appearance, alert, active, no acute distress Eyes: normal exam ENT: normal exam Neck: normal inspection, full range of motion Cardiovascular: normal exam, regular rate & rhythm Respiratory: normal exam, clear to auscultation, chest non-tender, no respiratory distress ABD: normal exam, normal bowel sounds, soft Genitourinary: normal voiding & quantity Extremities: dressings to left lower ext. slight edema to ext Musculoskeletal: normal exam Skin: normal exam, intact, warm Neuro: normal exam, alert, intact, oriented Reviewed: allergies, medications, vital signs, lab results, radiology report, consult note Assessment/Plan Problem List 1. Fracture of lower leg Qualifiers: Encounter type: initial encounter Fracture type: closed Laterality: left Qualified Code: S82.92XA - Unspecified fracture of left lower leg, initial encounter for closed fracture 2. Tobacco use 3. Alcohol use Patient condition Stable Plan: continue current care This inpt stay is expected to cross 2 MNs from start of care Yes Comments: rounded with antolin, pt states pain with activiity and needing degreasing solution mixer for for control. at 0842
--- NOTE | 2016-12-26 15:31 | ACUTE CARE PROGRESS NOTE ---
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 Fracture of lower leg Qualifiers Encounter type: initial encounter Fracture type: closed Laterality: left Qualified Code: S82.92XA - Unspecified fracture of left lower leg, initial encounter for closed fracture 2. Tobacco use 3. 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 can discharge from ortho standpoint when on oral pain control with f/u 10 to 14 days and TDWB at 1532
--- NOTE | 2016-12-26 15:31 | ACUTE CARE PROGRESS NOTE ---
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 Fracture of lower leg Qualifiers Encounter type: initial encounter Fracture type: closed Laterality: left Qualified Code: S82.92XA - Unspecified fracture of left lower leg, initial encounter for closed fracture 2. Tobacco use 3. 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 can discharge from ortho standpoint when on oral pain control with f/u 10 to 14 days and TDWB at 1537
[2016-12-27 04:01] VITALS: BP 116/79
[2016-12-27 08:00] VITALS: BP 118/61
--- NOTE | 2016-12-27 08:10 | ACUTE CARE PROGRESS NOTE (QUA) ---
Progress Notes Subjective Date 12/27/16 Time 0806 Note doing better Patient/family reports: feeling better Nursing reports: pain Objective Findings Last VS-Temp:98.1 B/P:116/79 Pulse:94 Resp:18 SaO2:93 ROOM AIR Last weight lbs:243 oz:5 K.366 Method:Bed Scales Exam General appearance: alert, awake Eyes: anicteric, PERRLA ENT: dry mucous membranes Neck: no JVD Cardiovascular: regular rate & rhythm, no murmur Respiratory: clear to auscultation, no respiratory distress ABD: soft Genitourinary: normal voiding & quantity Extremities: post surg lt lower leg - good cap refill Musculoskeletal: equal muscle strength Skin: dry Neuro: alert, water leak repairer II-XII nml as tested Reviewed: allergies, medications, vital signs, lab results, consult note Assessment/Plan Problem List 1. Fracture of lower leg 2. Tobacco use 3. Alcohol use Patient condition Improving Plan: initiate discharge plan This inpt stay is expected to cross 2 MNs from start of care Yes Comments: pt will be d/c this am - i discussed with dr tomas at 0809
--- NOTE | 2016-12-27 08:10 | ACUTE CARE PROGRESS NOTE (QUA) ---
Progress Notes Subjective Date 12/27/16 Time 0806 Note doing better Patient/family reports: feeling better Nursing reports: pain Objective Findings Last VS-Temp:98.1 B/P:116/79 Pulse:94 Resp:18 SaO2:93 ROOM AIR Last weight lbs:243 oz:5 K.366 Method:Bed Scales Exam General appearance: alert, awake Eyes: anicteric, PERRLA ENT: dry mucous membranes Neck: no JVD Cardiovascular: regular rate & rhythm, no murmur Respiratory: clear to auscultation, no respiratory distress ABD: soft Genitourinary: normal voiding & quantity Extremities: post surg lt lower leg - good cap refill Musculoskeletal: equal muscle strength Skin: dry 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 Fracture of lower leg 2. Tobacco use 3. Alcohol use Patient condition Improving Plan: initiate discharge plan This inpt stay is expected to cross 2 MNs from start of care Yes Comments: pt will be d/c this am - i discussed with dr tomas at 0809
[2016-12-27 08:17] VITALS: BP 118/61
--- NOTE | 2016-12-27 08:18 | DISCHARGE SUMMARY STANDARD ---
Demographics Admit date: 12/23/16 Discharge date: 12/27/16 History of present illness History of present illness this is a healthy wm who slipped on step last pm with acute lt leg injury and had been drinking etoh- he was brought by ems and was seen in the ed with fx of lt lower leg and was admitted for orif with dr storm-he patient is a 36-year- old male who fell down a set of stairs incurring a closed, comminuted spiral fracture of his LEFT tibial diaphysis as well as a closed spiral fracture Hospital Course Hospital Course: pt was seen by ortho and had orif -e patient was taken to the operating room and placed in the supine position. General anesthetic was administered. The leg was carefully prepped and draped in the usual sterile fashion with Hibiclens liquid followed by chlorhexidine preparations sponges. After an appropriate timeout, a closed reduction maneuver was attempted. Unfortunately, the comminution of the tibia at the fracture of the fibula prevented appropriate reduction. At this point, we elected to open and perform open reduction internal fixation on the fibula. The limb was exsanguinated and the tourniquet inflated to 325 torr. A midline incision was made over the fibula and we carefully dissected soft tissues using strict AO technique. The fibula was exposed the fracture site irrigated, and the fibula grasped with tenaculums and reduced to an anatomic position. A Garret plate was applied using cortical screws. This held the fibula and essentially an anatomic position and also brought the tibia out to a much more appropriate length. At this point, we could reduce the tibia near anatomically. We irrigated the lateral incision and packed it with wet sponges. We next made a suprapatella incision through the skin subcutaneous tissues, and into the quadriceps tendon. We carefully mobilized a small portion of the VMO to access the quadriceps tendon and spared cutting of these fibers. The tendon was split and we attempted to insert the Garret suprapatella guide and protection sleeve. The patellofemoral joint was quite tight in this patient and we were unable to achieve this despite repeated attempts including with the leg fully extended. At this point, we conferred with the employee representative and switch to the smaller guide which, would allow an 11 mm nail but no larger nail. We determined this would likely be adequate in this patient and proceeded to place the sleeve. We were able to get the sleeve in the patellofemoral joint however, the geometry allowed what appeared to be too posterior of a direction and a bit distal for starting point. Again we work with various degrees of flexion of the knee but unfortunately, were unable to successfully achieve a correct entry point using this technique. We then elected to go for an infrapatellar approach. We incised the skin, split the patellar tendon in the midline, and place the aiming cannulated awl in appropriate position, checking it with C-arm fluoroscopy. We then used the entry drill to place the guide pin. We then used the entry reamer followed by placement of a ball-tipped guidewire bent slightly at the tip to allow guidance. We carefully reduced the fracture manually and AP and lateral planes and carefully passed the ball-tipped guide past the fracture site so that it was placed in the center of the ankle. With the fracture stabilized by a nonoperative phlebotomist lab assistant, we sequentially reamed to 12.5. Appropriate chatter was heard at the latter stages of reaming and we elected to place an 11 mm nail. We measured the length at 350 and chose a 345 mm length nail. The tourniquet was deflated proximally at this point. The nail was placed in the usual fashion taking care to guide it appropriately and the surgical elastic knitter was meticulous and preventing varus and valgus or flexion and extension of the fracture site. The nail was passed successfully and position and fracture alignment checked carefully. We then applied the proximal jig placed the guide sleeves, and placed a cross lock screw after drilling. We placed a 75 mm cross lock which was what was measured however, this appeared a bit too long and we switched it for a 70 mm screw. This was done because the patient's young age. We then placed a second cross lock screw measuring at and again placed the appropriate length measured screw but found it also to be a bit longer than appropriate and also switched it for one 5 mm shorter. Proximal cross lock screws 2 achieved good fixation. The suprapatella incision was closed at the same time the cross locks were being placed to prevent excess surgical time. The distal cross locks were placed using freehand perfect muscogee technique. Once these two cross locks were placed, we irrigated and closed additional incisions as necessary. Both the quadriceps tendon and the patella tendon were closed with #1 Vicryl followed by subcutaneous closure with 2-0 Vicryl and rhett for the skin. The fibular lateral incision was irrigated and closed with 2-0 Vicryl followed by rhett. Calion were also utilized with two cross lock incisions distally. We used C-arm to appropriately identify all hardware placed and ensure appropriate placement and alignment of the fracture. We then applied dressings to the incisions and the patient was transported to the recovery room in satisfactory condition. EBL (ml): 150 Implant: Garret tibial nail, titanium. Two cross lock screws proximally and two cross lock screws distally. No tibial nail cap screw was utilized. A Garret straight titanium plate and non-locking screws were used for the fibula fracture Complications: None Specimens: None at 1656 <Electronically signed by Kulwant Storm MD> 12/24/16 1656 I: 12/24/16 AT: 1642 pt improved and was able to tolerate with po pain meds and ortho gave wt bearing instrx Discharge diagnoses Problem List 1. Fracture of lower leg 2. Tobacco use 3. Alcohol use Medications Medications: Discharge meds are as noted. Follow up Follow up in office in: 2 WEEKS with: Kulwant Storm MD Comment: will d/c on pain meds per dr storm ms er 30 mg bid x5 days and norco 5 1 q6h for bkthrough for 5 days at 0818
[2016-12-27 10:16] VITALS: BP 118/61
== END 2016-12-27 10:17 | disposition home or self-care (01) | DRG 494 ==
LOC: ER 00:37 → 2ND 02:54
PROVIDERS: Emergency Medicine; Orthopaedic Surgery
PROC: 0QSK04Z Reposition Left Fibula with Internal Fixation Device, Open Approach (ICD-10-PCS; 2016-12-24)
PROC: 0QSH36Z Reposition Left Tibia with Intramedullary Internal Fixation Device, Percutaneous Approach (ICD-10-PCS; principal; 2016-12-24 12:15)
DX: S82.242A Displaced spiral fracture of shaft of left tibia, initial encounter for closed fracture (principal); F10.129 Alcohol abuse with intoxication, unspecified; S82.445A Nondisplaced spiral fracture of shaft of left fibula, initial encounter for closed fracture; W10.9XXA Fall (on) (from) unspecified stairs and steps, initial encounter; Z72.0 Tobacco use
CPT/HCPCS: C1713; C1769; C1776; G0238; J2405

== ENCOUNTER → 2017-02-06 | Outpatient (CLI) | payer MEDICAID ==
[~2017-02-06] MED LIST changes: +ESCITALOPRAM 2020 MG PO; +GABAPENTIN 600600 MG PO; +HYDROXYZINE HCL25 M1 PO; +OXAZEPAM 10MG C10 M1 PO; +WELLBUTRIN SR100 MG PO
--- NOTE | 2017-02-06 11:40 | RADIOLOGY REPORT PS360 ---
LOWER LEG-LT HISTORY: Follow-up fracture ORTHOPEDIC AFTERCARE ORDERING PHYSICIAN: MARY MCHUGH MD PATIENT AGE: 36 years COMPARISON: 01/07/2017 FINDINGS: Intramedullary nic remains in place within the tibia stabilizing an oblique distal tibial fracture with good alignment. Bone plate is present over the distal fibula with good alignment of the distal fibular fracture with fracture lines are once again noted. Fracture lines may be slightly less apparent with some early callus formation at the tibial fracture. IMPRESSION: Healing distal tib-fib fracture status post ORIF with good alignment
[2017-02-06 12:00] LABS: HEMOGLOBIN 16.9 g/dL (14.1-18.0); LYMPH # 3.3 K/mm3 (0.7-4.5); LYMPH % 31.6 % (10-50)
== END ==
LOC: LAB 10:09 → RAD 10:09
PROVIDERS: Orthopaedic Surgery
DX: Z47.89 Encounter for other orthopedic aftercare (principal); B99.9 Unspecified infectious disease

== ENCOUNTER 2017-03-04 12:14 | Emergency (ER) | payer MEDICAID ==
[~2017-03-04] VITALS: Ht 175.3 cm; Wt 104.3 kg
--- OUTSIDE RECORDS SUMMARY | 2017-03-04 12:23 | External Medical Summary Rpt | CCD ---
Author Author [employer] Organization [employer] Address Unknown Phone Unavailable Purpose Continuity of Care Document - through 2016
--- OUTSIDE RECORDS SUMMARY | 2017-03-04 12:23 | External Medical Summary Rpt | CCD ---
Demographics Preferred Language Greenlandic Marital Status Unknown Mosque Affiliation Unknown Race Unknown Ethnic Group Unknown Author Author , ANNITA ARIZA Address Unknown Phone Immunization No patient found.
--- OUTSIDE RECORDS SUMMARY | 2017-03-04 12:23 | External Medical Summary Rpt | CCD ---
Demographics Preferred Language Serbian Marital Status Unknown Latter Day Affiliation Unknown Race Unknown Ethnic Group Unknown Author Author , ANNITA ARIZA Address Unknown Phone Immunization No patient found.
--- OUTSIDE RECORDS SUMMARY | 2017-03-04 12:23 | External Medical Summary Rpt | CCD ---
Author Author , ANNITA Organization [facility] Address Unknown Phone Care Team Providers Care Commercial Loan Analyst Name Role Phone Chas Morris MD, Unavailable Unavailable Cahs Morris MD Purpose Continuity of Care Document - 01-23-2013 through 2016 Problems Code Diagnosis DOS Provider Status 305.1 305.1 01-23-2013 [place] TOBACCO USE [facility] 719.44 719.44 01-23-2013 [facility] Allergies, Adverse Reactions, Alerts Type Allergy to substance Adverse Reaction to Substance Substance Reaction Severity NO KNOWN ALLERGIES Unknown Unknown Medications Na ND Rx Da Fi Fi Am Da Di Ph RX Ph St me C No te ll ll ou ys ag ar # ys at rm s nt no ma ic us Or Da si cy ia de te s n re d CO 64 09 0 No LC 76 -2 RY 40 9- Lo S 11 20 ng 0. 90 13 er 6 7 MG Ac ti TA ve BL ET SO 00 09 0 No MALINI 00 -2 -M 90 9- Lo ED 04 20 ng RO 72 13 er L 2 12 Ac 5 ti MG ve AL Vital Signs 01-23-2013 10:59 Name Value Interpretat Reference Comment ion Range BP 83 mm[Hg] Diastolic BP Systolic 128 mm[Hg] Heart 84 /min Rate/Pulse O2% 99 % Respiratory 20 /min Rate 01-23-2013 10:58 Name Value Interpretat Reference Comment ion Range BP 83 mm[Hg] Diastolic BP Systolic 128 mm[Hg] Heart 84 /min Rate/Pulse O2% 99 % Respiratory 20 /min Rate Results Labs Lab Lab Date Result Refere Interp Status Commen Order Detail nces retati t Range on Erythrocyte sedimentation rate by emma (02-06-2017 11:46) Erythro = 6 0-15 complet cyte 017 mm/hr ed sedimen 11:46 tation rate by emma CBC w auto diff (02-06-2017 11:46) Blood = 10.6 4.8-10. complet leukocy 017 K/MM3 8 ed shannon 11:46 count (number /volume ) Automat = 13.0 11.5-17 complet ed 017 % .5 ed erythro 11:46 cyte distrib ution width Red = 5.58 4.6-6.2 complet blood 017 M/mm3 ed cell 11:46 count Blood = 197 142-424 complet platele 017 K/mm3 ed t count 11:46 Automat = 8.5 7.4-10. complet ed 017 fl 4 ed blood 11:46 platele t mean volume romaine Mchenry % = 4.6 % 1.7-9.3 complet 017 ed 11:46 Absolut = 0.5 0.1-1.0 complet e 017 K/mm3 ed monocyt 11:46 e count Automat = 89.0 82.2-97 complet ed 017 fl .8 ed erythro 11:46 cyte mean corpusc ular v Automat = 34.1 31.8-35 complet ed 017 g/dl .4 ed erythro 11:46 cyte mean corpusc ular h Mean = 30.4 27-31.2 complet corpusc 017 pg ed ular 11:46 hemoglo bin (MCH) determ Lymphoc = 31.6 10-50 complet yte 017 % ed count, 11:46 blood, automat ed Absolut = 3.3 0.7-4.5 complet e 017 K/mm3 ed lymphoc 11:46 yte count Blood = 16.9 14.1-18 complet hemoglo 017 g/dL .0 ed bin 11:46 measure ment (mass/v olum Blood = 49.6 42.0-52 complet hematoc 017 % .0 ed rit 11:46 (volume fractio n) Granulo = 59.9 37.0-80 complet cyte 017 % .0 ed percent 11:46 age Blood = 6.3 1.3-8.0 complet granulo 017 K/mm3 ed cytes 11:46 automat ed count (numb Automat = 3.2 % 0.1-12. complet ed 017 0 ed blood 11:46 eosinop hils/10 0 leukocy t Automat = 0.3 0.0-0.4 complet ed 017 K/mm3 ed blood 11:46 eosinop hil count Baso % = 0.6 % 0.1-2.0 complet 017 ed 11:46 Automat = 0.1 0-0.2 complet ed 017 K/MM3 ed blood 11:46 basophi l count (count/ vo CRP (02-06-2017 11:46) CRP < 0.2 0.0-0.9 complet 017 MG/DL ed 11:46 Urinalysis dipstick W Reflex Microscopic panel in Urine (12-24-2016 17:30) Bacteri TRACE O complet a 017 ed [Presen 17:30 ce] in Urine sedimen t by Light microsc opy Erythro OCC 0 complet cytes 017 ed [Presen 17:30 ce] in Urine sedimen t by Light microsc opy Epithel NONE OCC complet ial 017 ed cells.s 17:30 quamous [Presen ce] in Urine sedimen t by Microsc opy high power field Leukocy 3-5 O complet shannon 017 wbc/hpf ed [#/volu 17:30 me] in Urine Urinalysis dipstick W Reflex Microscopic panel in Urine (12-24-2016 17:30) Appeara CLEAR CLEAR complet nce of 017 ed Urine 17:30 Bilirub NEGATIV NEG complet in 017 E ed [Presen 17:30 ce] in Urine by Test strip Erythro NEGATIV NEG complet cytes 017 E ed [Presen 17:30 ce] in Urine Color YELLOW YELLOW complet of 017 ed Urine 17:30 Ketones 1+ NEG Abnorma complet 017 l ed [Presen 17:30 ce] in Urine by Automat ed test strip Mucus NEGATIV NEG complet [Presen 017 E ed ce] in 17:30 Urine sedimen t by Light microsc opy Nitrite NEGATIV NEG complet 017 E ed [Presen 17:30 ce] in Urine by Test strip Urobili 1.0 NEG complet nogen 017 ed [Presen 17:30 ce] in Urine by Test strip Urinalysis dipstick W Reflex Microscopic panel in Urine (12-23-2016 02:36) Bacteri OCC O complet a 017 ed [Presen 02:36 ce] in Urine sedimen t by Light microsc opy Epithel OCC OCC complet ial 017 ed cells.s 02:36 quamous [Presen ce] in Urine sedimen t by Microsc opy high power field Leukocy 3-5 O complet shannon 017 wbc/hpf ed [#/volu 02:36 me] in Urine Drugs identified in Urine by Screen method (12-23-2016 02:36) Ampheta NEGATIV <1000 complet mine 017 E ed [Presen 02:36 ce] in Urine by Screen method 11-Hydr NEGATIV <50 complet oxy 017 E ed delta-9 02:36 tetrahy drocann abinol [Presen ce] in Unspeci fied specime n Urinalysis dipstick W Reflex Microscopic panel in Urine (12-23-2016 02:36) Appeara CLEAR CLEAR complet nce of 017 ed Urine 02:36 Bilirub NEGATIV NEG complet in 017 E ed [Presen 02:36 ce] in Urine by Test strip Erythro NEGATIV NEG complet cytes 017 E ed [Presen 02:36 ce] in Urine Color YELLOW YELLOW complet of 017 ed Urine 02:36 Ketones NEGATIV NEG complet 017 E ed [Presen 02:36 ce] in Urine by Automat ed test strip Mucus NEGATIV NEG complet [Presen 017 E ed ce] in 02:36 Urine sedimen t by Light microsc opy Nitrite NEGATIV NEG complet 017 E ed [Presen 02:36 ce] in Urine by Test strip Urobili 0.2 NEG complet nogen 017 ed [Presen 02:36 ce] in Urine by Test strip Drugs identified in Urine by Screen method (09-23-2016 15:50) Ampheta NEGATIV <1000 complet mine 017 E ed [Presen 15:50 ce] in Urine by Screen method NEGATIV <50 complet oxy 017 E ed delta-9 15:50 tetrahy drocann abinol [Presen ce] in Unspeci fied specime n Encounters Encounter Start End Date Code Location Performer Type Date Emergency LUIGI Morris MD (ER) 3 10:35 3 11:22 [facility]
--- OUTSIDE RECORDS SUMMARY | 2017-03-04 12:23 | External Medical Summary Rpt | CCD ---
Author Author , ANNITA Organization ANNITA Address Unknown Phone [email or web address] Care Team Providers Care Home Specialist Name Role Phone Chas Morris MD, Unavailable Unavailable Chas Morris MD Purpose Continuity of Care Document - 01-23-2013 through 2016 Problems Code Diagnosis DOS Provider Status 305.1 305.1 01-23-2013 [place] TOBACCO USE [facility] 719.44 719.44 01-23-2013 [facility] Allergies, Adverse Reactions, Alerts Type Allergy to [...] blood 11:46 platele t mean volume romaine [place] % = 4.6 % 1.7-9.3 complet 017 [...] Morris MD (ER) 3 10:35 3 11:22 [facility]
--- OUTSIDE RECORDS SUMMARY | 2017-03-04 12:24 | External Medical Summary Rpt ---
Author Author [employer], [employer] Organization [employer] Address Unknown Phone Unavailable Results CBC W Auto Differential panel in Blood Observa Value Referen Units Interpr Notes Date tion ce etation Range Basophils 0 - 0.2 K/MM3 Normal No Feb 06 inform2016 [#/volume on in 11:46 AM ] in source Blood by data Automated count Basophils 0.1 - 2.0 % Normal No Feb 062016 leukocyte on in 11:46 AM s in source Blood by data Automated count Eosinophi 0.0 - 0.4 K/mm3 Normal No Feb 06 ls informati 2016 [#/volume on in 11:46 AM ] in source Blood by data Automated count Eosinophi 0.1 - % Normal No Feb 06 ls/100 12.0 inform2016 leukocyte on in 11:46 AM s in source Blood by data Automated count Granulocy 1.3 - 8.0 K/mm3 Normal No Feb 06 shannon ati 2016 [#/volume on in 11:46 AM ] in source Blood by data Automated count Granulocy 37.0 - % Normal No Feb 06 shannon/100 80.0 inform2016 leukocyte on in 11:46 AM s in source Blood by data Automated count Hematocri 42.0 - % Normal No Feb 06 t [Volume 52.0 ati 2016 on in 11:46 AM Fraction] source of Blood data Hemoglobi 14.1 - g/dL Normal No Feb 06 n 18.0 2016 [Mass/vol on in 11:46 AM ume] in source Blood data Lymphocyt 0.7 - 4.5 K/mm3 Normal No Feb 06 es inform2016 [#/volume on in 11:46 AM ] in source Unspecifi data ed specimen by Automated count Lymphocyt 10 - 50 % Normal No Feb 06 es informati 2016 [#/volume on in 11:46 AM ] in source Unspecifi data ed specimen by Automated count Erythrocy 27 - 31.2 pg Normal No Feb 06 te mean 2016 corpuscul on in 11:46 AM ar source hemoglobi data n [Entitic mass] Erythrocy 31.8 - g/dl Normal No Feb 06 te mean 35.4 2016 corpuscul on in 11:46 AM ar source hemoglobi data n concentra tion [Mass/vol ume] by Automated count Erythrocy 82.2 - fl Normal No Feb 06 te mean 97.8 2016 corpuscul on in 11:46 AM ar volume source [Entitic data volume] by Automated count Monocytes 0.1 - 1.0 K/mm3 Normal No Feb 06 inform2016 [#/volume on in 11:46 AM ] in source Blood by data Automated count Monocytes 1.7 - 9.3 % Normal No Feb 06 /100 2016 leukocyte on in 11:46 AM s in source Blood by data Automated count Platelet 7.4 - fl Normal No Feb 06 mean 10.4 2016 volume on in 11:46 AM [Entitic source volume] data in Blood by Automated count Platelets 142 - 424 K/mm3 No No Feb 06 informati inform2016 [#/volume on in on in 11:46 AM ] in source source Blood data data Erythrocy 4.6 - 6.2 M/mm3 Normal No Feb 06 shannon inform2016 [#/volume on in 11:46 AM ] in source Amniotic data fluid Erythrocy 11.5 - % Normal No Feb 06 te 17.5 2016 distribut on in 11:46 AM ion width source [Entitic data volume] by Automated count Leukocyte 4.8 - K/MM3 Normal No Feb 06 s 10.8 2016 [#/volume on in 11:46 AM ] in source Blood data Erythrocyte sedimentation rate by Westergren method Observa Value Referen Units Interpr Notes Date tion ce etation Range Erythrocy 0 - 15 mm/hr Normal No Feb 06 te 2016 sedimenta on in 11:46 AM tion rate source by data Westergre n method Urinalysis dipstick W Reflex Microscopic panel in Urine Observa Value Referen Units Interpr Notes Date tion ce etation Range Collected by nurse? Y Hold specimen in OE? N Appeara CLEAR CLEAR No No No Dec 24 nce of informa informa informa 2016 Urine tion in tion in tion in 5:30 PM source source source data data data Bacteri TRACE O No No No Dec 24 a informa informa informa 2017 [Presen tion in tion in tion in 5:30 PM ce] in source source source Urine data data data sedimen t by Light microsc opy Bilirub NEGATIV NEG No No No Dec 24 in E informa informa informa 2017 [Presen tion in tion in tion in 5:30 PM ce] in source source source Urine data data data by Test strip Erythro NEGATIV NEG No No No Dec 24 cytes E informa informa informa 2017 [Presen tion in tion in tion in 5:30 PM ce] in source source source Urine data data data Color YELLOW YELLOW No No No Dec 24 of informa informa informa 2017 Urine tion in tion in tion in 5:30 PM source source source data data data Glucose NEG No No No Dec 24 [Mass/vol informati informati informati 2017 5:30 ume] in on in on in on in PM Urine by source source source Test data data data strip Ketones 1+ NEG mg/dL Abnorma No Dec 24 l informa 2016 [Presen tion in 5:30 PM ce] in source Urine data by Automat ed test strip Mucus NEGATIV NEG No No No Dec 24 [Presen E informa informa informa 2016 ce] in tion in tion in tion in 5:30 PM Urine source source source sedimen data data data t by Light microsc opy Nitrite NEGATIV NEG No No No Dec 24 E informa informa informa 2016 [Presen tion in tion in tion in 5:30 PM ce] in source source source Urine data data data by Test strip pH of 5.0 - 8.5 No Normal No Dec 24 Urine informati informati 2017 5:30 on in on in PM source source data data Protein NEG mg/dL No No Dec 24 [Mass/vol informati informati 2017 5:30 ume] in on in on in PM Urine by source source Automated data data test strip Erythro OCC 0 rbc/hpf No No Dec 24 cytes informa informa 2016 [Presen tion in tion in 5:30 PM ce] in source source Urine data data sedimen t by Light microsc opy Specific 1.005 - No Normal No Dec 24 gravity 1.030 informati informati 2017 5:30 of Urine on in on in PM source source data data Epithel NONE OCC #/hpf No No Dec 24 ial informa informa 2017 cells.s tion in tion in 5:30 PM quamous source source data data [Presen ce] in Urine sedimen t by Microsc opy high power field Urobili 1.0 NEG E.U./dL No No Dec 24 nogen informa informa 2017 [Presen tion in tion in 5:30 PM ce] in source source Urine data data by Test strip Leukocy [3 O wbc/hpf No No Dec 24 shannon wbc/hpf informa informa 2017 [#/volu ; 5 tion in tion in 5:30 PM me] in wbc/hpf source source Urine ] data data Urinalysis dipstick W Reflex Microscopic panel in Urine Observa Value Referen Units Interpr Notes Date tion ce etation Range Collected by nurse? Y Hold specimen in OE? N Appeara CLEAR CLEAR No No No Dec 24 nce of informa informa informa 2017 Urine tion in tion in tion in 5:30 PM source source source data data data Bilirub NEGATIV NEG No No No Dec 24 in E informa informa informa 2017 [Presen tion in tion in tion in 5:30 PM ce] in source source source Urine data data data by Test strip Erythro NEGATIV NEG No No No Dec 24 cytes E informa informa informa 2017 [Presen tion in tion in tion in 5:30 PM ce] in source source source Urine data data data Color YELLOW YELLOW No No No Dec 24 of informa informa informa 2017 Urine tion in tion in tion in 5:30 PM source source source data data data Glucose NEG No No No Dec 24 [Mass/vol informati informati informati 2017 5:30 ume] in on in on in on in PM Urine by source source source Test data data data strip Ketones 1+ NEG mg/dL Abnorma No Dec 24 l informa 2017 [Presen tion in 5:30 PM ce] in source Urine data by Automat ed test strip Mucus NEGATIV NEG No No No Dec 24 [Presen E informa informa informa 2017 ce] in tion in tion in tion in 5:30 PM Urine source source source sedimen data data data t by Light microsc opy Nitrite NEGATIV NEG No No No Dec 24 E informa informa informa 2016 [Presen tion in tion in tion in 5:30 PM ce] in source source source Urine data data data by Test strip pH of 5.0 - 8.5 No Normal No Dec 24 Urine informati informati 2017 5:30 on in on in PM source source data data Protein NEG mg/dL No No Dec 24 [Mass/vol informati informati 2016 5:30 ume] in on in on in PM Urine by source source Automated data data test strip Specific 1.005 - No Normal No Dec 24 gravity 1.030 informati informati 2016 5:30 of Urine on in on in PM source source data data Urobili 1.0 NEG E.U./dL No No Dec 24 nogen informa informa 2016 [Presen tion in tion in 5:30 PM ce] in source source Urine data data by Test strip Basic metabolic panel in Blood Observa Value Referen Units Interpr Notes Date tion ce etation Range Urea 7 - 18 mg/dL No No Dec 24 nitrogen informati informati 2017 6:26 [Mass/vol on in on in AM ume] in source source Serum or data data Plasma Calcium 8.5 - mg/dL Low No Dec 24 [Mass/vol 10.1 informati 2017 6:26 ume] in on in AM Serum or source Plasma data Chloride 98 - 107 mmoL/L Normal No Dec 24 [Moles/vo informati 2017 6:26 lume] in on in AM Serum or source Plasma data Carbon 21.0 - mmoL/L Normal No Dec 24 dioxide, 32.0 informati 2017 6:26 total on in AM [Moles/vo source lume] in data Serum or Plasma Creatinin 0.70 - mg/dL No No Dec 24 e 1.30 informati informati 2017 6:26 [Mass/vol on in on in AM ume] in source source Serum or data data Plasma Creatinin 50 - 200 ML/MIN No No Dec 24 e renal informati informati 2017 6:26 clearance on in on in AM source source predicted data data by Cockcroft -Gault formula Estimated >60 ML/MIN No REFERENCE Dec 24 informati RANGE: 2017 6:26 glomerula on in >60 AM r source ML/MIN/1. filtratio data 73 SQUARE n rate METERSIf (GF this patient is -A merican, then multiply theresult by 1.210. Glucose 74 - 106 mg/dL High No Dec 24 [Mass/vol informati 2017 6:26 ume] in on in AM Serum or source Plasma data Potassium 3.5 - 5.1 mmoL/L Normal No Dec 24 informati 2017 6:26 [Moles/vo on in AM lume] in source Serum or data Plasma Sodium 136 - 145 mmoL/L Normal No Dec 24 [Moles/vo informati 2017 6:26 lume] in on in AM Serum or source Plasma data CBC W Auto Differential panel in Blood Observa Value Referen Units Interpr Notes Date tion ce etation Range Basophils 0 - 0.2 K/MM3 Normal No Dec 24 informati 2016 6:26 [#/volume on in AM ] in source Blood by data Automated count Basophils 0.1 - 2.0 % Normal No Dec 24 / informati 2017 6:26 leukocyte on in AM s in source Blood by data Automated count Eosinophi 0.0 - 0.4 K/mm3 Normal No Dec 24 ls informati 2016 6:26 [#/volume on in AM ] in source Blood by data Automated count Eosinophi 0.1 - % Normal No Dec 24 ls/100 12.0 informati 2017 6:26 leukocyte on in AM s in source Blood by data Automated count Granulocy 1.3 - 8.0 K/mm3 Normal No Dec 24 shannon informati 2016 6:26 [#/volume on in AM ] in source Blood by data Automated count Granulocy 37.0 - % Normal No Dec 24 shannon/100 80.0 informati 2016 6:26 leukocyte on in AM s in source Blood by data Automated count Hematocri 42.0 - % Normal No Dec 24 t [Volume 52.0 informati 2017 6:26 on in AM Fraction] source of Blood data Hemoglobi 14.1 - g/dL Normal No Dec 24 n 18.0 informati 2017 6:26 [Mass/vol on in AM ume] in source Blood data Lymphocyt 0.7 - 4.5 K/mm3 Normal No Dec 24 es informati 2017 6:26 [#/volume on in AM ] in source Unspecifi data ed specimen by Automated count Lymphocyt 10 - 50 % Normal No Dec 24 es informati 2016 6:26 [#/volume on in AM ] in source Unspecifi data ed specimen by Automated count Erythrocy 27 - 31.2 pg Normal No Dec 24 te mean informati 2016 6:26 corpuscul on in AM ar source hemoglobi data n [Entitic mass] Erythrocy 31.8 - g/dl Normal No Dec 24 te mean 35.4 informati 2017 6:26 corpuscul on in AM ar source hemoglobi data n concentra tion [Mass/vol ume] by Automated count Erythrocy 82.2 - fl Normal No Dec 24 te mean 97.8 informati 2016 6:26 corpuscul on in AM ar volume source [Entitic data volume] by Automated count Monocytes 0.1 - 1.0 K/mm3 Normal No Dec 24 informati 2016 6:26 [#/volume on in AM ] in source Blood by data Automated count Monocytes 1.7 - 9.3 % Normal No Dec 24 /100 informati 2017 6:26 leukocyte on in AM s in source Blood by data Automated count Platelet 7.4 - fl Normal No Dec 24 mean 10.4 informati 2016 6:26 volume on in AM [Entitic source volume] data in Blood by Automated count Platelets 142 - 424 K/mm3 Normal No Dec 24 informati 2017 6:26 [#/volume on in AM ] in source Blood data Erythrocy 4.6 - 6.2 M/mm3 Normal No Dec 24 shannon informati 2016 6:26 [#/volume on in AM ] in source Amniotic data fluid Erythrocy 11.5 - % Normal No Dec 24 te 17.5 informati 2016 6:26 distribut on in AM ion width source [Entitic data volume] by Automated count Leukocyte 4.8 - K/MM3 High No Dec 24 s 10.8 informati 2016 6:26 [#/volume on in AM ] in source Blood data Urinalysis dipstick W Reflex Microscopic panel in Urine Observa Value Referen Units Interpr Notes Date tion ce etation Range Appeara CLEAR CLEAR No No No Dec 23 nce of informa informa informa 2016 Urine tion in tion in tion in 2:36 AM source source source data data data Bacteri OCC O No No No Dec 23 a informa informa informa 2016 [Presen tion in tion in tion in 2:36 AM ce] in source source source Urine data data data sedimen t by Light microsc opy Bilirub NEGATIV NEG No No No Dec 23 in E informa informa informa 2016 [Presen tion in tion in tion in 2:36 AM ce] in source source source Urine data data data by Test strip Erythro NEGATIV NEG No No No Dec 23 cytes E informa informa informa 2016 [Presen tion in tion in tion in 2:36 AM ce] in source source source Urine data data data Color YELLOW YELLOW No No No Dec 23 of informa informa informa 2017 Urine tion in tion in tion in 2:36 AM source source source data data data Glucose NEG No No No Dec 23 [Mass/vol informati informati informati 2017 2:36 ume] in on in on in on in AM Urine by source source source Test data data data strip Ketones NEGATIV NEG mg/dL No No Dec 23 E informa informa 2016 [Presen tion in tion in 2:36 AM ce] in source source Urine data data by Automat ed test strip Mucus NEGATIV NEG No No No Dec 23 [Presen E informa informa informa 2017 ce] in tion in tion in tion in 2:36 AM Urine source source source sedimen data data data t by Light microsc opy Nitrite NEGATIV NEG No No No Dec 23 E informa informa informa 2016 [Presen tion in tion in tion in 2:36 AM ce] in source source source Urine data data data by Test strip pH of 5.0 - 8.5 No Normal No Dec 23 Urine informati informati 2017 2:36 on in on in AM source source data data Protein NEG mg/dL No No Dec 23 [Mass/vol informati informati 2017 2:36 ume] in on in on in AM Urine by source source Automated data data test strip Specific 1.005 - No Normal No Dec 23 gravity 1.030 informati informati 2017 2:36 of Urine on in on in AM source source data data Epithel OCC OCC #/hpf No No Dec 23 ial informa informa 2017 cells.s tion in tion in 2:36 AM quamous source source data data [Presen ce] in Urine sedimen t by Microsc opy high power field Urobili 0.2 NEG E.U./dL No No Dec 23 nogen informa informa 2016 [Presen tion in tion in 2:36 AM ce] in source source Urine data data by Test strip Leukocy [3 O wbc/hpf No No Dec 23 shannon wbc/hpf informa informa 2016 [#/volu ; 5 tion in tion in 2:36 AM me] in wbc/hpf source source Urine ] data data Drugs identified in Urine by Screen method Observa Value Referen Units Interpr Notes Date tion ce etation Range Positive urine drug screen samples are stored for 7 days. Contact the Lab if confirmation of positives is needed. Ampheta NEGATIV <1000 ng/mL No No Dec 23 mine E informa informa 2016 [Presen tion in tion in 2:36 AM ce] in source source Urine data data by Screen method Barbitura <200 ng/mL No No Dec 23 shannon informati informati 2016 2:36 [Mass/vol on in on in AM ume] in source source Urine by data data Screen method Benzodiaz 200 ng/mL ng/mL High This is Dec 23 epine an 2016 2:36 [Mass/vol UNCONFIRM AM ume] in ED Serum or result. Plasma by This Screen result is method for medicalpu rposes and/or treatment only. Cocaine <300 ng/g No No Dec 23 [Mass/vol informati informati 2017 2:36 ume] in on in on in AM Unspecifi source source ed data data specimen Methadone <300 ng/mL High This is Dec 23 an 2016 2:36 [Mass/vol UNCONFIRM AM ume] in ED Unspecifi result. ed This specimen result is for medicalpu rposes and/or treatment only. Opiates <300 ng/mL No No Dec 23 [Mass/vol informati informati 2017 2:36 ume] in on in on in AM Unspecifi source source ed data data specimen Phencycli <25 ng/mL No No Dec 23 dine informati informati 2017 2:36 [Mass/vol on in on in AM ume] in source source Unspecifi data data ed specimen 11-Hydr NEGATIV <50 ng/mL No No Dec 23 oxy E informa informa 2017 delta-9 tion in tion in 2:36 AM source source tetrahy data data drocann abinol [Presen ce] in Unspeci fied specime n Urinalysis dipstick W Reflex Microscopic panel in Urine Observa Value Referen Units Interpr Notes Date tion ce etation Range Appeara CLEAR CLEAR No No No Dec 23 nce of informa informa informa 2016 Urine tion in tion in tion in 2:36 AM source source source data data data Bilirub NEGATIV NEG No No No Dec 23 in E informa informa informa 2016 [Presen tion in tion in tion in 2:36 AM ce] in source source source Urine data data data by Test strip Erythro NEGATIV NEG No No No Dec 23 cytes E informa informa informa 2016 [Presen tion in tion in tion in 2:36 AM ce] in source source source Urine data data data Color YELLOW YELLOW No No No Dec 23 of informa informa informa 2016 Urine tion in tion in tion in 2:36 AM source source source data data data Glucose NEG No No No Dec 23 [Mass/vol informati informati informati 2016 2:36 ume] in on in on in on in AM Urine by source source source Test data data data strip Ketones NEGATIV NEG mg/dL No No Dec 23 E informa informa 2016 [Presen tion in tion in 2:36 AM ce] in source source Urine data data by Automat ed test strip Mucus NEGATIV NEG No No No Dec 23 [Presen E informa informa informa 2016 ce] in tion in tion in tion in 2:36 AM Urine source source source sedimen data data data t by Light microsc opy Nitrite NEGATIV NEG No No No Dec 23 E informa informa informa 2016 [Presen tion in tion in tion in 2:36 AM ce] in source source source Urine data data data by Test strip pH of 5.0 - 8.5 No Normal No Dec 23 Urine informati informati 2017 2:36 on in on in AM source source data data Protein NEG mg/dL No No Dec 23 [Mass/vol informati informati 2017 2:36 ume] in on in on in AM Urine by source source Automated data data test strip Specific 1.005 - No Normal No Dec 23 gravity 1.030 informati informati 2017 2:36 of Urine on in on in AM source source data data Urobili 0.2 NEG E.U./dL No No Dec 23 nogen informa informa 2016 [Presen tion in tion in 2:36 AM ce] in source source Urine data data by Test strip Comprehensive metabolic 2000 panel in Serum or Plasma Observa Value Referen Units Interpr Notes Date tion ce etation Range Albumin/G 1.1 - 1.8 No Normal No Dec 23 lobulin informati informati 2016 2:00 [Mass on in on in AM ratio] in source source Serum or data data Plasma Albumin 3.4 - 5.0 gm/dL Normal No Dec 23 [Mass/vol informati 2016 2:00 ume] in on in AM Serum or source Plasma data Alkaline 46 - 116 U/L Normal No Dec 23 phosphata informati 2016 2:00 se on in AM [Enzymati source c data activity/ volume] in Serum or Plasma Bilirubin 0.2 - 1.0 mg/dL Normal No Dec 23 .total informati 2016 2:00 [Mass/vol on in AM ume] in source Serum or data Plasma Urea 7 - 18 mg/dL Normal No Dec 23 nitrogen informati 2016 2:00 [Mass/vol on in AM ume] in source Serum or data Plasma Calcium 8.5 - mg/dL Low No Dec 23 [Mass/vol 10.1 informati 2017 2:00 ume] in on in AM Serum or source Plasma data Chloride 98 - 107 mmoL/L Normal No Dec 23 [Moles/vo informati 2016 2:00 lume] in on in AM Serum or source Plasma data Carbon 21.0 - mmoL/L Normal No Dec 23 dioxide, 32.0 informati 2017 2:00 total on in AM [Moles/vo source lume] in data Serum or Plasma Creatinin 0.70 - mg/dL Normal No Dec 23 e 1.30 informati 2016 2:00 [Mass/vol on in AM ume] in source Serum or data Plasma Creatinin 50 - 200 ML/MIN Normal No Dec 23 e renal informati 2016 2:00 clearance on in AM source predicted data by Cockcroft -Gault formula Estimated >60 ML/MIN No REFERENCE Dec 23 informati RANGE: 2017 2:00 glomerula on in >60 AM r source ML/MIN/1. filtratio data 73 SQUARE n rate METERSIf (GF this patient is -A merican, then multiply theresult by 1.210. Globulin 1.3 - 3.2 gm/dL High No Dec 23 [Mass/vol informati 2016 2:00 ume] in on in AM Serum source data Glucose 74 - 106 mg/dL Low No Dec 23 [Mass/vol informati 2016 2:00 ume] in on in AM Serum or source Plasma data Potassium 3.5 - 5.1 mmoL/L Low No Dec 232016 2:00 [Moles/vo on in AM lume] in source Serum or data Plasma Sodium 136 - 145 mmoL/L Normal No Dec 23 [Moles/vo informati 2016 2:00 lume] in on in AM Serum or source Plasma data Aspartate 15 - 37 U/L Normal No Dec 232016 2:00 aminotran on in AM sferase source [Enzymati data c activity/ volume] in Serum or Plasma Alanine 12 - 78 U/L Normal No Dec 23 aminotran 2016 2:00 sferase on in AM [Enzymati source c data activity/ volume] in Serum or Plasma Protein 6.4 - 8.2 gm/dL Normal No Dec 23 [Mass/vol informati 2016 2:00 ume] in on in AM Serum or source Plasma data Ethanol [Mass/volume] in Serum or Plasma Observa Value Referen Units Interpr Notes Date tion ce etation Range Ethanol 0 - 99 mg/dL High ANY Dec 23 [Mass/vol ALCOHOL > 2016 2:00 ume] in OR = 80 AM Serum or MG/DL IS Plasma CONSIDERE D LEGALLYIN TOXICATED UNDER [place] [facility]. CBC W Auto Differential panel in Blood Observa Value Referen Units Interpr Notes Date tion ce etation Range Basophils 0 - 0.2 K/MM3 Normal No Dec 23 informati 2016 2:00 [#/volume on in AM ] in source Blood by data Automated count Basophils 0.1 - 2.0 % Normal No Dec 23 informati 2016 2:00 leukocyte on in AM s in source Blood by data Automated count Eosinophi 0.0 - 0.4 K/mm3 Normal No Dec 23 ls informati 2016 2:00 [#/volume on in AM ] in source Blood by data Automated count Eosinophi 0.1 - % Normal No Dec 23 ls/100 12.0 informati 2016 2:00 leukocyte on in AM s in source Blood by data Automated count Granulocy 1.3 - 8.0 K/mm3 Normal No Dec 23 shannon informati 2016 2:00 [#/volume on in AM ] in source Blood by data Automated count Granulocy 37.0 - % Normal No Dec 23 shannon/100 80.0 informati 2016 2:00 leukocyte on in AM s in source Blood by data Automated count Hematocri 42.0 - % Normal No Dec 23 t [Volume 52.0 informati 2016 2:00 on in AM Fraction] source of Blood data Hemoglobi 14.1 - g/dL Normal No Dec 23 n 18.0 informati 2016 2:00 [Mass/vol on in AM ume] in source Blood data Lymphocyt 0.7 - 4.5 K/mm3 Normal No Dec 23 es informati 2016 2:00 [#/volume on in AM ] in source Unspecifi data ed specimen by Automated count Lymphocyt 10 - 50 % Normal No Dec 23 informati 2016 2:00 [#/volume on in AM ] in source Unspecifi data ed specimen by Automated count Erythrocy 27 - 31.2 pg High No Dec 23 te mean informati 2016 2:00 corpuscul on in AM ar source hemoglobi data n [Entitic mass] Erythrocy 31.8 - g/dl High No Dec 23 te mean 35.4 informati 2016 2:00 corpuscul on in AM ar source hemoglobi data n concentra tion [Mass/vol ume] by Automated count Erythrocy 82.2 - fl Normal No Dec 23 te mean 97.8 informati 2016 2:00 corpuscul on in AM ar volume source [Entitic data volume] by Automated count Monocytes 0.1 - 1.0 K/mm3 Normal No Dec 23 informati 2016 2:00 [#/volume on in AM ] in source Blood by data Automated count Monocytes 1.7 - 9.3 % Normal No Dec 23 / informati 2016 2:00 leukocyte on in AM s in source Blood by data Automated count Platelet 7.4 - fl Normal No Dec 23 mean 10.4 informati 2016 2:00 volume on in AM [Entitic source volume] data in Blood by Automated count Platelets 142 - 424 K/mm3 Normal No Dec 23 informati 2016 2:00 [#/volume on in AM ] in source Blood data Erythrocy 4.6 - 6.2 M/mm3 Normal No Dec 23 shannon informati 2016 2:00 [#/volume on in AM ] in source Amniotic data fluid Erythrocy 11.5 - % Normal No Dec 23 te 17.5 informati 2016 2:00 distribut on in AM ion width source [Entitic data volume] by Automated count Leukocyte 4.8 - K/MM3 Normal No Dec 23 s 10.8 informati 2016 2:00 [#/volume on in AM ] in source Blood data Drugs identified in Urine by Screen method Observa Value Referen Units Interpr Notes Date tion ce etation Range Positive urine drug screen samples are stored for 7 days. Contact the Lab if confirmation of positives is needed. Ampheta NEGATIV <1000 ng/mL No No September 23 mine E informa informa 2016 [Presen tion in tion in 3:50 PM ce] in source source Urine data data by Screen method Barbitura <200 ng/mL No No September 23 shannon informati informati 2016 3:50 [Mass/vol on in on in PM ume] in source source Urine by data data Screen method Benzodiaz 200 ng/mL ng/mL No No September 23 epines informati informati 2016 3:50 [Mass/vol on in on in PM ume] in source source Serum or data data Plasma by Screen method Cocaine <300 ng/g No No September 23 [Mass/vol informati informati 2016 3:50 ume] in on in on in PM Unspecifi source source ed data data specimen Methadone <300 ng/mL No No September 23 informati informati 2016 3:50 [Mass/vol on in on in PM ume] in source source Unspecifi data data ed specimen Opiates <300 ng/mL No No September 23 [Mass/vol informati informati 2016 3:50 ume] in on in on in PM Unspecifi source source ed data data specimen Phencycli <25 ng/mL No No September 23 dine informati informati 2016 3:50 [Mass/vol on in on in PM ume] in source source Unspecifi data data ed specimen 11-Hydr NEGATIV <50 ng/mL No No September 23 oxy E informa informa 2017 delta-9 tion in tion in 3:50 PM source source tetrahy data data drocann abinol [Presen ce] in Unspeci fied specime n
--- OUTSIDE RECORDS SUMMARY | 2017-03-04 12:24 | External Medical Summary Rpt ---
[...] IS Plasma CONSIDERE D LEGALLYIN TOXICATED UNDER [place] [employer] LAW. CBC W Auto Differential panel in [...]
--- NOTE | 2017-03-04 12:53 | Urgent Treatment Center Report ---
History of Present Issue Date/Time Seen by Provider 03/04/17 1240 Visit Reason Pt arrived:Walked Presenting Problem:CUTTING WOOD LAST NIGHT, STRUCK L ANKLE WITH WOOD LOG, C/O PAIN SWELLING ABOVE L JAZMINE Location if Accident: Onset of symptoms date/time:/ or onset unknown for:MEDICAL HX UNKNOWN Have you (or family members/close friends) recently traveled outside the [place]? N If Yes, where/when: Have you had exposure to infectious disease within the past month? TB? Other? Specify: Patient states that he was cutting wood at home when a piece of wood kicked up and struck him in the ankle area right around where he had broken his leg 2 months ago and had a nic placed. States that he has since had some swelling and tenderness in the leg and not sure if he may have reinjuried the leg or possibly broke another bone ALLERGIES Coded Allergies: No Known Allergies (12/24/16) Home Medications Reported Medications Gabapentin (Neurontin) 800 MG PO TID Oxazepam 10 MG PO BIDP PRN ANXIETY Escitalopram Oxalate (Escitalopram 20MG) 20 MG PO DAILY BUPROPION HCL SR (Wellbutrin SR 100MG) 100 MG PO BID History Medical History General CAD? No Angina: No AK: No Hypertension? No Hyperlipidemia? No CHF? No DVT? No PE? No COPD? No Asthma? No Anemia? No GERD? No Gastric ulcers? No GI Bleed? No Hernia? No Thyroid Problems? No Hypothyroidism? No CVA? No Seizures? No Diabetes? No Renal Insuffiency? No UTI? No Stones? No BPH? No GB Disease: No Nephritic Syndrome? No Asplenia? No Hepatitis? No Sickle Cell Disease? No Arthritis? No Migraines? No Cataracts? No Glaucoma? No MRSA? Yes HIV? No TB? No Anxiety? No Depression? No Cancer? No Immunization HX DT/Tetanus 5-10 Years Ago Pneumonia Refuses Surgical Hx Previous Surgery?Y NASAL SURGERY KNEE Family History Family HX Diabetes Yes CAD No Hypertension Yes Hyperlipidemia No Cancer Yes TB No Social History Smoking Hx Smoker: Current Every Day Smoker Tobacco: Yes Type Cigarettes Packs/day 1 1/2 - 2 Packs Alcohol Alcohol: Yes Review of Systems All Other Systems Reviewed and Negative Comment Pain in left lower leg and ankle area after being struck with a piece of wood that he was cutting, recent nic placement in this leg Physical Exam Vital Signs Vital Signs Date Time Temp Pulse Resp B/P Pulse O2 O2 Flow FiO2 Ox Delivery Rate 03/04 1226 98.6 100 18 153/81 96 General Appearance normal appearance, WD/WN, no apparent distress Respiratory Status Yes: trachea midline, chest symmetrical, non tender chest. No: respiratory distress. Cardiovascular normal exam, regular rate/rhythm Extremities swelling, Tenderness and mild swelling noted lower leg/ankle area, no discoloration. good pulses good cap refill Neurologic alert, normal exam, oriented x 3 Medical Decision Making LABS/Meds/Orders Pt receiving controlled substance in ED? No Results/Orders Orders Procedure Date/time Status LOWER LEG-LT 03/04 1233 Active ANKLE-LT-3 VIEWS 03/04 1233 Active XRAY/CT/US XRAY/CT/US XRAY ankle, leg XR interpretation by discussed w/radiologist Xray Results No new fractures, Status post ORIF healing distal tib fib fracture Departure Departure Time of Disposition 1310 Disposition DC Home or Self Care(routine) Clinical Impression Primary Impression: Leg injury Qualifiers: Encounter type: initial encounter Laterality: left Qualified Code: S89.92XA - Unspecified injury of left lower leg, initial encounter Condition STABLE Referrals Andi CASILLAS,Ken Dickinson (Family) Kulwant Storm MD Call office and see if he can see you sooner than 03/25 if pain or swelling continued Patient Instructions How To Perform RICE (Rest, Ice, Compress, Elevate) Additional Instructions *RICE, Rest the extremity, Ice 15-20 minutes 3-4 times daily, Compress- wear the dev wrap as discussed as much as possible to help reduce swelling and pain, Elevate the extremity when at rest *Dev wrap is for support and help control swelling, use it except in the shower. Be sure that is not to tight but not to loose either *Elevate when resting *Ibuprofen 600-800mg every 6-8 hours as needed for pain an inflammation. If need something more can take Tylenol in between doses of Ibuprofen to help Immediately follow up for new or worsening of symptoms, or no noticeable improvement over the next 3-5 days Keep appointment with Dr Morton and follow up with him or family doctor sooner if needed Discharge Counseling Counseled pt/family regarding diagnosis, test results, medications/RX, home care, follow up needs Prescriptions Current Visit Scripts Ibuprofen (Ibuprofen 800MG) 800 MG PO QIDP PRN pain #30 TAB at [id number]
--- NOTE | 2017-03-04 12:58 | RADIOLOGY REPORT PS360 ---
ANKLE-LT-3 VIEWS HISTORY: Pain following injury WOOD HIT LEG WHILE HE WAS SPLITTING WOOD ORDERING PHYSICIAN: ALFREDA SUN APRN PATIENT AGE: 36 years COMPARISON: 02/06/2017 FINDINGS: Status post prior ORIF tib-fib fracture with a tibial intramedullary nic stabilized by 2 distal screws and a lateral bone plate of the distal fibula. Fracture lines are present at the distal tibia and fibula with callus formation consistent with healing fractures. No new fractures are evident. IMPRESSION: 1. No new fractures apparent. 2. Status post ORIF healing distal tib-fib fractures.
--- NOTE | 2017-03-04 12:58 | RADIOLOGY REPORT PS360 ---
LOWER LEG-LT HISTORY: Post traumatic pain WOOD HIT LEG WHILE HE WAS SPLITTING WOOD ORDERING PHYSICIAN: ALFREDA SUN APRN PATIENT AGE: 36 years COMPARISON: None FINDINGS: Status post prior ORIF tib-fib fracture with a tibial intramedullary nic stabilized by 2 distal screws and a lateral bone plate of the distal fibula. Fracture lines are present at the distal tibia and fibula with callus formation consistent with healing fractures. No new fractures are evident. 2 screws are present in the proximal aspect of the intramedullary nic of the tibia. No acute fracture evident at the proximal tib-fib IMPRESSION: 1. No new fractures apparent. 2. Status post ORIF healing distal tib-fib fractures.
[2017-03-04] MEDS ORDERED: IBUPROFEN800 MG PO (13:13)
[2017-03-04 13:16] VITALS: BP 140/80
== END 2017-03-04 13:17 | disposition home or self-care (01) ==
LOC: UTC 12:14
DX: S89.92XA Unspecified injury of left lower leg, initial encounter (principal); F17.210 Nicotine dependence, cigarettes, uncomplicated; W22.8XXA Striking against or struck by other objects, initial encounter; Y92.099 Unspecified place in other non-institutional residence as the place of occurrence of the external cause

== ENCOUNTER → 2017-03-24 | Outpatient (CLI) | payer MEDICAID ==
[~2017-03-24] MED LIST changes: +IBUPROFEN800 MG PO
--- NOTE | 2017-03-24 13:19 | RADIOLOGY REPORT PS360 ---
LOWER LEG-LT HISTORY: Follow-up fracture FU FX ORDERING PHYSICIAN: Kulwant Storm MD PATIENT AGE: 36 years COMPARISON: 03/04/2017 FINDINGS: Intramedullary nic remains in place stabilizing a fracture of the mid and distal third of the tibia. There is developing callus formation with some decreased prominence of the fracture line remains good alignment. A bone plate is present of the distal shaft of the fibula stabilizing an oblique distal fibular fracture with good alignment. IMPRESSION: Good alignment status post ORIF healing tib-fib fractures
== END ==
LOC: RAD 12:26
DX: Z47.89 Encounter for other orthopedic aftercare (principal)